=== PATIENT | female | born 1975 | race Caucasian/White ===

== ENCOUNTER → 2021-07-28 08:26 | Outpatient (BNVA) | payer OTHER, SELFPAY | PROVIDERS: PCP Internal Medicine; Visit Provider Nurse Practitioner Family | DX: G43.109 Migraine with aura, not intractable, without status migrainosus (principal); M54.2 Cervicalgia | CPT/HCPCS: 99202 ==

== ENCOUNTER → 2021-09-21 13:11 | Outpatient (BNVA) | payer OTHER, SELFPAY | PROVIDERS: PCP Internal Medicine; Visit Provider Nurse Practitioner Family | DX: M54.2 Cervicalgia (principal); G43.109 Migraine with aura, not intractable, without status migrainosus | CPT/HCPCS: 99212 ==

== ENCOUNTER → 2021-12-26 15:12 | Outpatient (BNVA) | payer OTHER, SELFPAY | PROVIDERS: Visit Provider Nurse Practitioner Family | DX: G43.109 Migraine with aura, not intractable, without status migrainosus (principal); G24.5 Blepharospasm; M54.2 Cervicalgia | CPT/HCPCS: 99212 ==

== ENCOUNTER 2022-01-11 14:11 | Outpatient (REF) | payer OTHER, SELFPAY ==
--- NOTE | ~2022-01-11 | MR_ITS ---
EXAMINATION: MRI OF THE BRAIN WITHOUT CONTRAST CLINICAL INFORMATION: Migraine with aura. History of prior surgery. COMPARISON: There are no prior studies available for comparison at time of dictation. TECHNIQUE: MRI of the brain was obtained using routine sequences without contrast. FINDINGS: There is susceptibility artifact from hardware in the posterior upper cervical spine. No diffusion abnormalities are identified to suggest an acute or subacute infarct. No mass effect or midline shift is seen. The ventricles and sulci are normal in size. There are multiple small foci of hyperintense T2 and FLAIR signal in the deep white matter which are nonspecific. They may be consistent with sequelae of migraine, vasculitis or early/mild chronic microvascular ischemic disease. No extra-axial fluid collections are seen. The brainstem appears normal. Imaging of the cerebellum is degraded by susceptibility artifact, but grossly no abnormal signal is seen. Apart from low gradient signal in the posterior fossa from susceptibility artifact, no pathologic magnetic susceptibility artifact is identified on the gradient refocused acquisition. Marrow signal and midline structures are normal. The cerebellar tonsillar tips appear to be in normal position. The major intracranial flow-voids at the level of the grayling of Gons[place] are preserved. The dural venous sinus flow-voids are maintained. The mastoid air cells are well-aerated. There is a small retention cyst in the inferior left axillary sinus. MR/MR head/brain wo con IMPRESSION: 1. There are no acute bleeds or infarcts. No masses are demonstrated. 2. There are multiple small foci of hyperintense T2 and FLAIR signal in the white matter as described above. 3. There is hardware in the posterior upper cervical spine with susceptibility artifact in the posterior fossa.
== END 2022-01-11 14:12 | disposition home or self-care (01) ==
LOC: HO.MRI 14:11
PROVIDERS: Visit Provider Nurse Practitioner Family
DX: G43.109 Migraine with aura, not intractable, without status migrainosus (principal); G24.5 Blepharospasm
CPT/HCPCS: 70551

== ENCOUNTER → 2022-06-01 13:09 | Outpatient (BNVA) | payer OTHER, SELFPAY | PROVIDERS: Visit Provider Nurse Practitioner Family | DX: G43.109 Migraine with aura, not intractable, without status migrainosus (principal); G24.5 Blepharospasm; M54.2 Cervicalgia | CPT/HCPCS: 99212 ==

== ENCOUNTER → 2022-08-31 12:54 | Outpatient (BNVA) | payer OTHER, SELFPAY | PROVIDERS: Visit Provider Nurse Practitioner Family | DX: G43.109 Migraine with aura, not intractable, without status migrainosus (principal); M54.2 Cervicalgia; Z79.899 Other long term (current) drug therapy | CPT/HCPCS: 99212 ==

== ENCOUNTER 2022-09-01 17:21 | Outpatient (REF) | payer OTHER, SELFPAY ==
--- NOTE | ~2022-09-01 | XR_ITS ---
EXAMINATION: XR CERVICAL SPINE CLINICAL INFORMATION: Neck pain. COMPARISON: None available. TECHNIQUE: 6 views of the cervical spine, inclusive of bilateral oblique views, were obtained. FINDINGS: There are postsurgical changes following ACDF at C6-C7. There appears to be bony ankylosis at this level. Hardware is intact. There are post laminectomy changes and posterior fusion hardware from C2 to C6. Posterior fusion hardware appears intact. There is no fracture or dislocation. There is increased cervical kyphosis. There is degenerative disc disease from C2-C3 to C5-C6. There is degenerative spondylosis at C7-T1. Neural foramen not well assessed due to overlying surgical hardware. XR/XR cervical spine min 6V IMPRESSION: Postsurgical changes. Degenerative changes. No fracture or dislocation.
== END 2022-09-01 17:22 | disposition home or self-care (01) ==
LOC: HO.XRAY 17:21
PROVIDERS: Visit Provider Nurse Practitioner Family
DX: M54.2 Cervicalgia (principal)
CPT/HCPCS: 72052

== ENCOUNTER 2023-03-19 08:54 | Outpatient (AMB) | payer OTHER, SELFPAY ==
--- NOTE | 2023-03-19 09:01 | A.OFFVIS_ITS ---
Intake Vital Signs 03/19/23 09:03 Height 5 ft 9 in Weight 183 lb BMI 27.0 BP 112/72 Blood Pressure Location Rt brachial Position Sitting Pulse 78 Pulse Source Pulse Oximeter Pulse Oximetry (%) 96 Oxygen Delivery Method Room Air Intake Visit Reasons: 4m f/up migraine-Confirmed Intake Note: Patient presents for 4 month migraine. Patient states I want to talk to her about the pain I'm getting and shes treating it with cyclobenzaprine,it's gotten worst. Allergies azithromycin Allergy (Intermediate, Verified 03/19/23 09:14) Rash gabapentin Allergy (Intermediate, Verified 03/19/23 09:14) Unknown propranolol Allergy (Intermediate, Verified 03/19/23 09:14) Rash tramadol Allergy (Intermediate, Verified 03/19/23 09:14) Rash Medication List - Last Reconciled 03/19/23 by Mireille Monroy, TARAS albuterol sulfate 90 mcg/actuation 2 puffs inhalation Q6H PRN erhhaikeoq-lgjordhzgjrwi-upvx 50-325-40 mg 1 tab PO Q4H PRN 30 days cyclobenzaprine 5 - 10 mg (1 - 2 x 5 mg) PO BEDTIME PRN 30 days diclofenac sodium 1% 4 grams topical QID PRN 14 days ibuprofen 400 mg PO Q6H PRN magnesium oxide 400 mg PO BEDTIME 30 days naproxen 500 mg PO BID PRN norethindrone (contraceptive) 0.35 mg PO DAILY nystatin topical DAILY riboflavin (vitamin B2) 400 mg PO DAILY 30 days sodium chloride 0.65% (Saline Nasal) 1 spray intranasal topiramate 25 - 50 mg (1 - 2 x 25 mg) PO BEDTIME 30 days HPI HPI Comments History of Present Illness Details 47-yr-old female presents for f/u visit. Pt denies any significant interval medical changes. Pt reports she is having approx 12 headache migraine days per month. She is compliant w/ Topiramate 25mg qhs- may cause some dizziness. She continues to have left sided jolting pain through her neck, into the left shoulder blade.- sometimes into the LUE. The pain makes her stop in her tracks. This pain comes and comes. Occasionally will have LUE pins and needles. She also has left sided pain that moves from the lateral hip and moves anteriorly straight down the left leg. The pain is throbbing, aching pain. It is a constant pain. Denies LUE and LLE weakness. [facility] Medical History (Updated 03/19/23 @ 09:33 by TARAS Millan) Foot fracture, left Broken neck Family History Mother Diabetes Bladder cancer Father HTN (hypertension) Brother HTN (hypertension) Social History Household Members: Spouse and Children Housing: Apartment Alcohol intake: never Patient Tobacco Use Status: Current everyday Tobacco user Cigarettes Per Day: 10 Years Smoked: 30 Substance Use Type: Marijuana Review of Systems Const All systems reviewed & are unremarkable except as noted in HPI and below Physical Exam Vital Signs: Last Vital Signs Pulse 78 03/19/23 09:03 BP 112/72 03/19/23 09:03 Pulse Ox 96 03/19/23 09:03 Oxygen Delivery Method Room Air 03/19/23 09:03 BMI result Body Mass Index 27.0 Const General: cooperative and no acute distress Orientation/consciousness: patient oriented x3 HEENT Head: Yes normocephalic Resp Effort & Inspection: normal respiratory effort and able to speak in complete sentences Neuro Other: Bilateral posterior cervical tightness. General: patient oriented x3, gait normal and CN's II-XI intact bilaterally Cognition (Neuro): normal cognition Motor exam (neuro): 5/5 motor strength present throughout Sensory Exam: double simultaneous stimulation for sensation normal Deep tendon reflexes (DTR's): Right triceps reflex intensity grade: 3+, Left triceps reflex intensity grade: 3+, Rt Biceps (C5, C6): 3+, Left biceps reflex intensity grade: 3+, Right brachioradialis reflex intensity grade: 3+, Left brachioradialis reflex intensity grade: 2+, Right patellar reflex intensity grade: 3+ and Left patellar reflex intensity grade: 2+ Psych Appearance: grossly normal Mental Status: mental status grossly normal Speech and movement: Normal speech and movement present Affect: normal affect Attitude: cooperative Thought process: Normal thought process present Thought content: Normal thought content present Insight: Good insight present (Psych) Judgement: Good judgement present (Psych) Assessment & Plan Assessment & Plan (1) Migraine with aura: Code(s): G43.109 - Migraine with aura, not intractable, without status migrainosus (2) Left leg pain: Code(s): M79.605 - Pain in left leg (3) Paresthesia of left upper extremity: Code(s): R20.2 - Paresthesia of skin (4) Cervicalgia: Comment: h/o C4-C5 fracture at age 15, s/p cervical stabilization repair. Code(s): M54.2 - Cervicalgia (5) Hyperreflexia: Comment: RUE and RLE Code(s): R29.2 - Abnormal reflex Plan For left-sided neck pain and LLE pain- Reviewed c-spine x-ray- Postsurgical changes. Degenerative changes. No fracture or dislocation. PT eval & tx for cervicalgia, LUE paresthesias. Pt advised to undergo c-spine MRI w/o. Pt advised to undergo LUE & LLE EMG/NCS. May use diclofenac gel 1% qid prn Hold Cyclobenzaprine- ineffective. Trial Baclofen 10mg qd-bid. For migraine prevention: Continue topiramate 25mg qhs- would not increase further d/t dizziness. Start Aimovig 140mg sc q month. Previous preventive medication trials: propranolol- not tolerated. amitriptyline- eye twitching. For acute migraine tx: Hold Fioricet prn. Trial Ubrelvy 100mg prn. Previous acute medication trials: Rizatriptan, Sumatriptan, Nurtec- ineffective. f/u in 3-4 months or sooner prn. Orders: Orders EEG electroencephalogram Today M54.2 - Cervicalgia, M79.605 - Pain in left leg, R20.2 - Paresthesia of skin MR cervical spine wo con Today M54.2 - Cervicalgia, R20.2 - Paresthesia of skin, R29.2 - Abnormal reflex PT Evaluation and Treatment Today M54.2 - Cervicalgia, R20.2 - Paresthesia of skin Medications: New erenumab-aooe (Aimovig Autoinjector) 140 mg subcut ONCE 30 days 1 mL 6RF ubrogepant (Ubrelvy) take at onset of migraine, may repeat in 2hrs (may take w/ Ibuprofen) 50 - 100 mg (0.5 - 1 x 100 mg) PO ONCE 30 days PRN 16 tabs 3RF migraine headache baclofen 10 mg PO BID 30 days 60 tabs 1RF Refilled topiramate 25 - 50 mg (1 - 2 x 25 mg) PO BEDTIME 30 days 60 tabs 3RF Discontinued cyclobenzaprine Discontinued Reason: Doctor's Order 5 - 10 mg (1 - 2 x 5 mg) PO BEDTIME 30 days PRN 60 tabs 1RF muscle spasm Coding Level of Care Code Est Pt Level 4 (38713) Diagnoses Migraine with aura G43.109 Left leg pain M79.605 Paresthesia of left upper extremity R20.2 Cervicalgia M54.2 Hyperreflexia R29.2
[2023-03-19 09:03] VITALS: BP 112/72; PULSE 78; O2SAT 96; BMI 27.0
== END 2023-03-19 09:46 | disposition home or self-care (01) ==
PROVIDERS: Visit Provider Nurse Practitioner Family
DX: G43.109 Migraine with aura, not intractable, without status migrainosus (principal); M79.605 Pain in left leg; R20.2 Paresthesia of skin; M54.2 Cervicalgia; R29.2 Abnormal reflex
CPT/HCPCS: 99214

== ENCOUNTER → 2023-03-19 08:54 | Outpatient (BNVA) | payer OTHER, SELFPAY | PROVIDERS: Visit Provider Nurse Practitioner Family | DX: G43.109 Migraine with aura, not intractable, without status migrainosus (principal); M54.2 Cervicalgia; M79.605 Pain in left leg; R20.2 Paresthesia of skin; R29.2 Abnormal reflex | CPT/HCPCS: 99212 ==

== ENCOUNTER 2023-05-02 10:22 | Outpatient (REF) | payer OTHER, SELFPAY ==
--- NOTE | ~2023-05-02 | MR_ITS ---
EXAMINATION: MR CERVICAL SPINE WITHOUT CONTRAST CLINICAL INFORMATION: Paresthesias of skin. The patient states left-sided neck symptoms. COMPARISON: Plain films of the cervical spine 09/01/2022. TECHNIQUE: MRI of the cervical spine was obtained using routine sequences without contrast. FINDINGS: VERTEBRAL BODIES AND PARASPINAL SOFT TISSUES: There is a mild dextroscoliosis at the cervicothoracic region. There is reversal of the normal cervical lordosis, demonstrated on prior imaging. The study redemonstrates the sequelae of ACDF at C6-C7 with good interbody fusion. The study also redemonstrates sequelae of multilevel posterior laminectomies and fusions with a plate and multilevel wiring, better evaluated on the prior study as there is significant susceptibility artifact from the hardware. There is narrowing of intervertebral disc height at C4-C5. There is disc desiccation at C7-T1. There are no compression fractures. Accounting for artifact, overall marrow signal is homogenous. Imaging of the paraspinal and paravertebral soft tissues is markedly degraded by susceptibility artifact. CERVICOMEDULLARY JUNCTION AND VISUALIZED POSTERIOR FOSSA: The craniocervical and posterior fossa structures are normal. Signal from the spinal cord is suboptimally evaluated due to susceptibility artifact. However, there is an area of increased signal in the spinal cord at the level of C4-C5, right greater than left, consistent with an area of myelomalacia. There is mild atrophy of the cord at this level. SPINAL LEVELS: C2-C3: Posterior disc contour is normal. There is no central stenosis or cord compression. The neural foramina are patent bilaterally. C3-C4: Posterior disc contour is normal. There is no central stenosis or cord compression. The neural foramina are patent bilaterally. C4-C5: There are sequelae of a decompression posteriorly. Posterior disc contour and there is no cord compression or central stenosis. The neural foramina are patent bilaterally. C5-C6: Posterior disc contour is normal and there is no cord compression or central stenosis. The neural foramina are patent bilaterally. C6-C7: There is a posterior osteophytic ridge which effaces CSF ventral to the cord but there is no definite cord compression. There are right greater than left foraminal disc osteophytes with narrowing of the neural foramina. There is no definite central stenosis. C7-T1: Evaluation of the structures are markedly degraded by susceptibility artifact on the axial images. On the sagittal images there is a large left-sided disc protrusion/extrusion extending into the left neural foramen with impingement on the exiting left C8 nerve root. On the axial 3-D FIESTA images there does not appear to be central stenosis. MR/MR cervical spine wo con IMPRESSION: 1. The study redemonstrates sequelae of ACDF at C6-C7 and multilevel posterior decompressions and fusions,, better visualized on the prior plain films. The hardware causes severe susceptibility artifact. 2. There is a large left-sided disc protrusion/extrusion at C7-T1 extending into the left neural foramen with impingement on the exiting left C8 nerve root. 3. There is an area of increased signal in the spinal cord at the level of C4-C5, consistent with myelomalacia. There is mild atrophy of the cord at this level.
== END 2023-05-02 10:23 | disposition home or self-care (01) ==
LOC: HO.MRI 10:22
PROVIDERS: Visit Provider Nurse Practitioner Family
DX: M54.2 Cervicalgia (principal); R20.2 Paresthesia of skin; R29.2 Abnormal reflex
CPT/HCPCS: 72141

== ENCOUNTER 2023-05-25 13:37 | Outpatient (REF) | payer OTHER, SELFPAY | END 2023-05-25 13:38 | disposition home or self-care (01) | LOC: HO.NEURO 13:37 | PROVIDERS: Visit Provider Nurse Practitioner Family | DX: R20.2 Paresthesia of skin (principal); R29.2 Abnormal reflex; M79.605 Pain in left leg; M54.2 Cervicalgia | CPT/HCPCS: 95886; 95908 ==

== ENCOUNTER → 2023-05-25 13:40 | Outpatient (BNV) | payer OTHER, SELFPAY | PROVIDERS: Visit Provider Physical Medicine & Rehabilitation | DX: R20.2 Paresthesia of skin (principal); M79.662 Pain in left lower leg | CPT/HCPCS: 95886; 95908 ==

== ENCOUNTER 2023-06-12 13:04 | Outpatient (AMB) | payer OTHER, SELFPAY ==
--- NOTE | 2023-06-12 13:10 | A.SPINEOV_ITS ---
Intake Intake Visit Reasons: cervicalgia Intake Note: Ms. Frank is here today c/o neck pain. MRI done @ [facility] [place]. [employer] Required: No Allergies azithromycin Allergy (Intermediate, Verified 03/19/23 09:14) Rash gabapentin Allergy (Intermediate, Verified 03/19/23 09:14) Unknown propranolol Allergy (Intermediate, Verified 03/19/23 09:14) Rash tramadol Allergy (Intermediate, Verified 03/19/23 09:14) Rash Assessment & Plan Assessment & Plan (1) Cervicalgia: Comment: h/o C4-C5 fracture at age 15, s/p cervical stabilization repair. Code(s): M54.2 - Cervicalgia (2) Carpal tunnel syndrome: Code(s): G56.00 - Carpal tunnel syndrome, unspecified upper limb Plan Dear Mireille Thank you for referring Mrs Frank to our office today. This is a 47-year-old female who has a history of a traumatic fracture of C4-5, status post decompression and posterior wiring from C2-C6 done in 1992, subsequently had anterior cervical fusion at C6-[address] Palacios done in 2017. The patient reports that when she had the initial accident, she was basically quadriplegic but regained full function of everything but her right arm which has a degree of numbness and diffuse weakness. She is able to continue on with life, and she was doing relatively well until 2016 or so when she started to develop bilateral arm pain with feelings of weakness. She underwent the anterior cervical fusion at C6-7 and after about a year or so tells me that the symptoms ultimately went away. Fast forward to about a year ago she started to notice feelings of pain in her arms coming down from her neck with feeling of diffuse numbness in her hands. Specifically only the palm and not the fingers. It seemed more pronounced on the right rather than the left. There is some degree of feeling of hand weakness but she tells me it is hard to distinguish because of the residual affects from her spinal cord injury. The symptoms have steadily gotten worse. She also has overlapping symptoms of migraines which are treated with Fioricet. She treats her chronic neck pain with baclofen and naproxen. An MRI was done to evaluate and it showed a left C7-T1 left-sided disc herniation compressing the left C8 nerve root and she was sent to us for an evaluation. She is also currently being worked up with an EMG for possible carpal tunnel. She does have nighttime symptoms or if she bends her wrist the right way can get the numbness she describes in the palms. PMH: She has the 2 cervical spinal issues that required surgery, other than that she tells me she is reasonably healthy. She does recall needing to wear a collar after her 2nd surgery for 6 months because the bones would not heal correctly. She has mild COPD Social hx: She smokes a half a pack daily, smokes marijuana daily, denies alcohol Medications: Fioricet, baclofen, naproxen, control, albuterol as needed Allergies: Please see the [employer] list Physical exam: She is awake alert oriented no acute distress, she is able get out of a chair and walk on her own, she does demonstrate diffuse weakness in the right arm which I would rate as 4/5. She has some atrophy as well of the thenar eminence. Diffuse hyperreflexia. Positive Tinel's and positive Phalen signs. Imaging review: Cervical MRI and x-ray at [place] shows extensive hardware from C2-C6 posteriorly. There is an anterior plate at C6-7 and there appears to be good interbody fusion at this level. She has reversal of the normal lordotic curvature of the cervical spine. There is a disc herniation on the left at C7- T1 causing compression of the left C8 nerve root. There is myelomalacia at C4-5 but no residual compression. Impression: 47-year-old female with a complicated cervical spinal history including a fracture at C4-5 necessitating an extensive posterior wiring at C2- C6 almost 30 years ago, who also had subsequent postoperative adjacent segment disease with an anterior cervical diskectomy and fusion with an anterior plate in 2017 for neck pain and bilateral arm pain. She did well after the 2nd surgery after about a year. She was told that her bone quality was not great and that the healing of the operative site took longer than expected. She had to wear a collar through that postoperative experience. She presents now with 1 year of progressive pain down her arms with tingling in the palms of her hands. She tells me that is worse on the right than the left. On my exam she does have strength loss, right greater than left. Diffuse hyperreflexia as we would expect with a history of a spinal cord injury. Positive Tinel's and positive Ph robert sign so I expect she has some degree of carpal tunnel as well. She is due for an EMG study. Her imaging shows extensive postsurgical changes from C2-C6 posteriorly and the anterior plate at C6-7. There is no residual compression either in the central canal or in the nerve roots at any of these levels. She does have the finding of a left C7-T1 disc herniation but no cord compression. I do not understand why she has bilateral arm pain with only a unilateral disc herniation at C7-T1. There is no cord compression at this level but rather just compression of the left C8 nerve root. I am wondering if what she is experiencing is in some type of bilaterall carpal tunnel syndrome with an overlapping left-sided C8 radiculopathy. I would like to see the results of her EMG and get a noncontrast cervical CT to evaluate her hardware and bone quality better before we make a final surgical decision. We will see her back after the CT in the EMG are completed. Thank you for allowing us to care for your patient. The total time spent with this visit with this patient was 45 minutes reviewing history, physical exam, cervical imaging review, and implementation of treatment plan or further diagnostic testing Rolly Renee MD,PhD [facility] Orders: Orders CT cervical spine wo IV con Today M54.2 - Cervicalgia Coding Level of Care Code New Pt Level 4 (81202) Diagnoses Cervicalgia M54.2 Carpal tunnel syndrome G56.00
== END 2023-06-12 13:41 | disposition home or self-care (01) ==
PROVIDERS: Referring Provider Nurse Practitioner Family; Visit Provider Physician Assistant
DX: M54.2 Cervicalgia (principal); G56.00 Carpal tunnel syndrome, unspecified upper limb
CPT/HCPCS: 99204

== ENCOUNTER → 2023-06-12 13:04 | Outpatient (BNVA) | payer OTHER, SELFPAY | PROVIDERS: Visit Provider Physician Assistant | DX: M54.2 Cervicalgia (principal); G56.00 Carpal tunnel syndrome, unspecified upper limb; Z98.1 Arthrodesis status | CPT/HCPCS: 99202 ==

== ENCOUNTER 2023-07-06 14:49 | Outpatient (REF) | payer OTHER, SELFPAY ==
--- NOTE | ~2023-07-06 | CT_ITS ---
CT CERVICAL SPINE WITHOUT CONTRAST HISTORY: 47 years old Female, cervicalgia TECHNIQUE: CT images of the cervical spine were acquired without intravenous contrast. This CT examination was performed using dose optimization techniques as appropriate, variously including the following: *Automated exposure control *Adjustment of mA and/or kV according to patient size (this includes techniques or standardized protocols for targeted exams where dose is matched to indication/reason for exam; i.e. extremities or head) *Use of iterative reconstruction technique DLP: 376 mGy-cm COMPARISON: Cervical spine MRI 05/02/2023, cervical radiographs 09/01/2022 FINDINGS: Reversal of normal cervical lordosis with shallow levocurvature of the cervical spine. Cervical vertebral body heights are maintained. No significant spondylolisthesis. Prior anterior cervical discectomy and fusion at C6-C7. Multilevel posterior decompression and fusion with vertical rods and multiple cerclage wires extending from C2 through C6. C2-C3: No significant spinal canal or neural foraminal stenosis. C3-C4: No significant spinal canal or neural foraminal stenosis. C4-C5: Mild narrowing of the right neural foramen. The spinal canal and left neural foramen are patent. C5-C6: No significant spinal canal or neural foraminal stenosis. C6-C7: Osteophytic ridging indents the ventral thecal sac with at least mild canal stenosis is suboptimally evaluated on this examination. Likely moderate to severe right and moderate left neural foraminal stenosis. C7-T1: Suboptimal evaluation of disc material seen on prior MRI. CT/CT cervical spine wo IV con IMPRESSION: Anterior cervical discectomy and fusion at C6-C7 with multilevel posterior decompression and fusion. Posterior fusion hardware spanning C2-C6 degrades evaluation of the thecal sac and neural foramen at these levels. No acute hardware complication is visualized. Previously visualized left sided disc protrusion/extrusion at C7-T1 is not well characterized on this examination.
== END 2023-07-06 14:50 | disposition home or self-care (01) ==
LOC: HO.CT 14:49
PROVIDERS: Visit Provider Physician Assistant
DX: M54.2 Cervicalgia (principal)
CPT/HCPCS: 72125

== ENCOUNTER 2023-07-18 10:47 | Outpatient (AMB) | payer OTHER, SELFPAY ==
--- NOTE | 2023-07-18 10:48 | MHC.OFFVIS ---
Intake Intake Visit Reasons: 4 mnts f/u for migraines-Lvm Intake Note: patient presents for follow up migraines. wants to stop Ubrelvy she stated is making her throw up a lot wants to go back on fioricet. Allergies azithromycin Allergy (Intermediate, Verified 07/18/23 10:49) Rash gabapentin Allergy (Intermediate, Verified 07/18/23 10:49) Unknown propranolol Allergy (Intermediate, Verified 07/18/23 10:49) Rash tramadol Allergy (Intermediate, Verified 07/18/23 10:49) Rash Medication List - Last Reconciled 07/18/23 by Mireille Monroy, TARAS albuterol sulfate 90 mcg/actuation 2 puffs inhalation Q6H PRN baclofen 10 mg PO BID 30 days sfcgabxapb-fiwspksmqsrrw-gwde 50-325-40 mg 1 tab PO Q4H PRN 30 days diclofenac sodium 1% 4 grams topical QID PRN 14 days erenumab-aooe (Aimovig Autoinjector) 140 mg subcut ONCE 30 days ibuprofen 400 mg PO Q6H PRN magnesium oxide 400 mg PO BEDTIME 30 days naproxen 500 mg PO BID PRN norethindrone (contraceptive) 0.35 mg PO DAILY nystatin topical DAILY riboflavin (vitamin B2) 400 mg PO DAILY 30 days sodium chloride 0.65% (Saline Nasal) 1 spray intranasal topiramate 25 - 50 mg (1 - 2 x 25 mg) PO BEDTIME 30 days ubrogepant (Ubrelvy) 50 - 100 mg (0.5 - 1 x 100 mg) PO ONCE PRN 30 days HPI HPI Comments History of Present Illness Details 47-yr-old female presents for f/u televideo visit via [employer], Since the last visit, C-spine MRI showed sequelae of ACDF at C6-C7 and multilevel posterior decompressions and fusions, Large left-sided disc protrusion/extrusion at C7-T1 extending into the left neural foramen with impingement on the exiting left C8 nerve root. Increased signal in the spinal cord at the level of C4-C5, consistent with myelomalacia w/ mild atrophy of the cord at this level. LLE EMG/NCS was normal. The LUE EMG/NCS- is pending. After review of above, pt was referred to nuerosurgery, who advised for surgical intervention, but did want to see results of a f/u c-spine CT and BUE EMG/NCS. She continues to have neck pain, tightness- she feels this can trigger her worsening She continues to have BUE tingling. The Baclofen and heat tx has been helpful. The Baclofen takes longer to work but last longer and is more effective then the cyclobenzaprine. She did not hear from PT yet, She is having migraine 2-3 x's per week. Ubrelvy causes vomiting about 40 minutes after taking it, the vomiting then triggers her neck pain and a new migraine. She did stop the Aimovig- as she was not sure if this was making her vomit. Baseline headache characteristics: Has had visual aura- sees a pulsing red/orange halo around people. Severe, throbbing, headache is right frontal and moves into right back of neck a/w seeing spots, right eye twitching, mild photophobia, osmophobia, phonophobia, nausea, vomiting at times. [facility] Medical History (Updated 07/18/23 @ 12:32 by TARAS Millan) Foot fracture, left Broken neck Family History Mother Diabetes Bladder cancer Father HTN (hypertension) Brother HTN (hypertension) Social History Household Members: Spouse and Children Housing: Apartment Alcohol intake: never Patient Tobacco Use Status: Current everyday Tobacco user Cigarettes Per Day: 10 Years Smoked: 30 Substance Use Type: Marijuana Physical Exam Const General: cooperative and no acute distress Orientation/consciousness: patient oriented x3 Resp Effort & Inspection: normal respiratory effort and able to speak in complete sentences Neuro General: patient oriented x3 Cognition (Neuro): normal cognition Psych Appearance: grossly normal Mental Status: mental status grossly normal Speech and movement: Normal speech and movement present Affect: normal affect Attitude: cooperative Assessment & Plan Assessment & Plan (1) Migraine with aura: Code(s): G43.109 - Migraine with aura, not intractable, without status migrainosus (2) Paresthesia and pain of right extremity: Code(s): M79.609 - Pain in unspecified limb; R20.2 - Paresthesia of skin (3) Cervicalgia: Comment: h/o C4-C5 fracture at age 15, s/p cervical stabilization repair. Code(s): M54.2 - Cervicalgia Plan For left-sided neck pain and LLE pain and BUE paresthesias- Reviewed c-spine MRI: sequelae of ACDF at C6-C7 and multilevel posterior decompressions and fusions, Large left-sided disc protrusion/extrusion at C7-T1 extending into the left neural foramen with impingement on the exiting left C8 nerve root. Increased signal in the spinal cord at the level of C4-C5, consistent with myelomalacia w/ mild atrophy of the cord at this level. EMG/NCS order updated from LUE to BUE as pt c/o BUE paresthesias. May use diclofenac gel 1% qid prn Continue Baclofen 10mg qd-bid- more effective then Cyclobenzaprine. F/u w/ neurosurgery as scheduled. Hold PT eval & tx for now pending EMG/NCS and neurosurgery f/u. ? For migraine prevention: Continue topiramate 25mg qhs- would not increase further d/t dizziness. Hold Aimovig 140mg sc q month- discussed this likely was not causing the vomiting. Pt will reconsider starting following her c-spine work-up/tx. Previous preventive medication trials: propranolol- not tolerated. amitriptyline- eye twitching. ? For acute migraine tx: May resume Fioricet prn. Stop Ubrelvy 100mg- causes vomiting. Previous acute medication trials: Rizatriptan, Sumatriptan, Nurtec- ineffective. ? f/u in 3-4 months or sooner prn. Medications: Refilled qfhwfactme-ncrhoglskxvut-fxdi 50-325-40 mg max 2 tabs per day or 4 tabs per week 1 tab PO Q4H 30 days PRN 20 tabs 2RF headache Discontinued ubrogepant (Ubrelvy) take at onset of migraine, may repeat in 2hrs (may take w/ Ibuprofen) Discontinued Reason: Doctor's Order 50 - 100 mg (0.5 - 1 x 100 mg) PO ONCE 30 days PRN 16 tabs 3RF migraine headache Telehealth Telehealth Location of provider rendering services: practice address Location of patient: address on file Patient Identification confirmed using: Name, : Yes Telehealth method: video Patient verbally consented to treatment: Yes Patient verbally consented to billing insurance company: Yes Patient informed of any privacy concerns related to visit: Yes Minutes spent on Phone/Video with Pt.: 30 Coding Level of Care Code Tele Est Pt Level 4 (00098) Diagnoses Migraine with aura G43.109 Paresthesia and pain of right extremity M79.609; R20.2 Cervicalgia M54.2
== END 2023-07-18 14:02 | disposition home or self-care (01) ==
LOC: HO.HSMS 10:48
PROVIDERS: Visit Provider Nurse Practitioner Family
DX: G43.109 Migraine with aura, not intractable, without status migrainosus (principal); M79.609 Pain in unspecified limb; R20.2 Paresthesia of skin; M54.2 Cervicalgia
CPT/HCPCS: 99214

== ENCOUNTER → 2023-07-18 10:47 | Outpatient (BNVA) | payer OTHER, SELFPAY | PROVIDERS: Visit Provider Nurse Practitioner Family ==

== ENCOUNTER 2023-07-26 13:56 | Outpatient (REF) | payer OTHER, SELFPAY ==
--- NOTE | 2023-07-26 13:58 | EMG_ITS ---
Chief complaint: Tingling on both arms History of a traumatic fracture of C4-5, status post decompression and posterior wiring from C2-C6 done in 1992, subsequently had anterior cervical fusion at C6- [address] Palacios done in 2017 Reason for referral: Evaluate for radiculopathy versus Carpal Tunnel Syndrome Referred by: Mireille Monroy NP Procedure done: Left upper extremity ordered, bilateral done Precautions and/or limitations: Past cervical spine surgeries, paraspinal needle EMG deferred The limb temperature was monitored continuously and remained between 32-36 degrees C during the performance of the NCS. Nerve Conduction Studies Anti Sensory Summary Table ?Stim Site NR Onset (ms) Norm Onset (ms) Peak (ms) Norm Peak (ms) O-P Amp (?V) Norm O-P Amp Site1 Site2 Delta-0 (ms) Dist (cm) Donald (m/s) Norm Donald (m/s) Left Median Anti Sensory (2nd Digit) Wrist ? 2.2 2.9 <3.6 30.3 >10 Wrist 2nd Digit 2.2 14.0 64 Right Median Anti Sensory (2nd Digit) Wrist ? 2.3 2.8 <3.6 41.5 >10 Wrist 2nd Digit 2.3 14.0 61 Left Ulnar Anti Sensory (5th Digit) Wrist ? 2.3 2.9 <3.7 29.2 >15.0 Wrist 5th Digit 2.3 14.0 61 Right Ulnar Anti Sensory (5th Digit) Wrist ? 2.0 2.9 <3.7 16.7 >15.0 Wrist 5th Digit 2.0 14.0 70 Motor Summary Table ?Stim Site NR Onset (ms) Norm Onset (ms) O-P Amp (mV) Norm O-P Amp iAmp (mV) Amp (1st) (%) Site1 Site2 Delta-0 (ms) Dist (cm) Donald (m/s) Norm Donald (m/s) Left Median Motor (Abd Poll Brev) Wrist ? 3.0 <3.9 10.3 >4.5 12.6 100.0 Elbow Wrist 4.3 22.0 51 >45 Elbow ? 7.3 9.5 11.3 92.2 Right Median Motor (Abd Poll Brev) Wrist ? 3.0 <3.9 9.8 >4.5 12.5 100.0 Elbow Wrist 3.8 21.0 55 >45 Elbow ? 6.8 9.3 11.8 94.9 Left Ulnar Motor (Abd Dig Minimi) Wrist ? 2.7 <3.0 6.1 >5 7.4 100.0 B Elbow Wrist 3.2 20.0 63 >45 B Elbow ? 5.9 5.8 7.3 95.1 A Elbow B Elbow 1.5 10.0 67 >45 A Elbow ? 7.4 5.6 7.0 91.8 Right Ulnar Motor (Abd Dig Minimi) Wrist ? 2.9 <3.0 6.1 >5 7.7 100.0 B Elbow Wrist 3.0 18.0 60 >45 B Elbow ? 5.9 6.1 7.8 100.0 A Elbow B Elbow 1.3 10.0 77 >45 A Elbow ? 7.2 6.2 8.0 101.6 Comparison Summary Table ?Stim Site NR Peak (ms) Norm Peak (ms) P-T Amp (?V) Site1 Site2 Delta-P (ms) Norm Delta (ms) Left Median/Radial Dig I Comparison (Digit 1 - 10cm) Median ? 2.3 <2.9 44.1 Median Radial 0.0 Radial ? 2.3 <2.8 52.1 Right Median/Radial Dig I Comparison (Digit 1 - 10cm) Median ? 2.1 <2.9 53.6 Median Radial 0.1 Radial ? 2.2 <2.8 23.9 EMG ?Side Muscle Nerve Root Ins Act Fibs Psw Amp Dur Poly Recrt Int Pat Comment Right 1stDorInt Ulnar C8-T1 Nml Nml Nml Nml Nml 0 Nml Complete Right FlexCarRad Median C6-7 Nml Nml Nml Nml Nml 0 Nml Complete Right Biceps Musculocut C5-6 Nml Nml Nml Nml Nml 0 Nml Complete Right Triceps Radial C6-7-8 Nml Nml Nml Nml Nml 0 Nml Complete Right Deltoid Axillary C5-6 Nml Nml Nml Incr Incr 0 Nml Complete Right Supraspinatus SupraScap C5-6 Nml Nml Nml Nml Nml 0 Nml Complete Left 1stDorInt Ulnar C8-T1 Nml Nml Nml Nml Nml 0 Nml Complete Left FlexCarRad Median C6-7 Nml Nml Nml Nml Nml 0 Nml Complete Left Biceps Musculocut C5-6 Nml Nml Nml Nml Nml 0 Nml Complete Left Triceps Radial C6-7-8 Nml Nml Nml Nml Nml 0 Nml Complete Left Deltoid Axillary C5-6 Nml Nml Nml Nml Nml 0 Nml Complete FINDINGS: All motor and sensory nerves tested showed normal latencies, amplitudes and conduction velocities. Concentric needle EMG was performed in selected muscles of the bilateral upper extremities. Study revealed Signs of electric abnormalities as shown in the table below. Right deltoid showed increased duration and amplitude. No denervation or reinnervation seen in other C5-6 innervated muscles. IMPRESSION: 1. This is a minimally abnormal study. 2. There is electrodiagnostic findings suggestive for chronic right C5-6 radiculopathy. 3. There is no electrodiagnostic evidence for median neuropathy, ulnar neuropathy, or brachial plexopathy. Thank you for your kind referral. Samantha Krueger MD, NICK Board Certified, [place] [employer] and [employer] (ABPMR) Board Certified, [place] Board of Electrodiagnostic Medicine (ABEM) CODIN 56730 x 2 MTDD
== END 2023-07-26 13:57 | disposition home or self-care (01) ==
LOC: HO.NEURO 13:56
PROVIDERS: Visit Provider Nurse Practitioner Family
DX: R29.2 Abnormal reflex (principal); R20.2 Paresthesia of skin; M79.605 Pain in left leg; M54.2 Cervicalgia
CPT/HCPCS: 95886; 95911

== ENCOUNTER → 2023-07-26 13:58 | Outpatient (BNV) | payer OTHER, SELFPAY | PROVIDERS: Visit Provider Physical Medicine & Rehabilitation | DX: M50.122 Cervical disc disorder at C5-C6 level with radiculopathy (principal) | CPT/HCPCS: 95886; 95911 ==

== ENCOUNTER 2023-09-05 14:39 | Outpatient (AMB) | payer OTHER, SELFPAY ==
--- NOTE | 2023-09-05 14:43 | HO.SPINEOV ---
Intake Intake Visit Reasons: f/up/EMG results Intake Note: Ms. Frank is here today to F/u on EMG results. Chief Operator Hydroformer Required: No Allergies azithromycin Allergy (Intermediate, Verified 09/05/23 14:44) Rash gabapentin Allergy (Intermediate, Verified 09/05/23 14:44) Unknown propranolol Allergy (Intermediate, Verified 09/05/23 14:44) Rash tramadol Allergy (Intermediate, Verified 09/05/23 14:44) Rash Assessment & Plan Assessment & Plan (1) Paresthesia of left upper extremity: Code(s): R20.2 - Paresthesia of skin (2) Paresthesia and pain of right extremity: Code(s): M79.609 - Pain in unspecified limb; R20.2 - Paresthesia of skin Plan Dear colleague, On 09/05/2023, I saw for follow-up Alison Frank. As you know, she suffering from bilateral arm tingling. An MRI showed a left-sided C7-T1 disc herniation without cord compression. We ordered an EMG which comes back normal. A CT scan of the cervical spine was reviewed and showed a solid fusion. I explained to the patient that no surgical intervention is required. She does have myelomalacia and mild spinal cord atrophy that I think is most likely responsible for the progressive bilateral arm symptoms. She could try gabapentin for the tingling. Thank you for allowing me take care of this patient. Fantasma Renee MD, PhD Spine Fellowship Trained Neurosurgeon Director, [facility] Coding Level of Care Code Est Pt Level 2 (47649) Diagnoses Paresthesia of left upper extremity R20.2 Paresthesia and pain of right extremity M79.609; R20.2
== END 2023-09-05 15:19 | disposition home or self-care (01) ==
PROVIDERS: PCP Internal Medicine; Visit Provider Neurological Surgery
DX: R20.2 Paresthesia of skin (principal); M79.609 Pain in unspecified limb
CPT/HCPCS: 99212

== ENCOUNTER → 2023-09-05 14:39 | Outpatient (BNVA) | payer OTHER, SELFPAY | PROVIDERS: Visit Provider Neurological Surgery | DX: R20.2 Paresthesia of skin (principal); M79.601 Pain in right arm; M79.602 Pain in left arm | CPT/HCPCS: 99212 ==

== ENCOUNTER 2023-11-01 11:40 | Outpatient (AMB) | payer OTHER, SELFPAY ==
--- NOTE | 2023-11-01 11:45 | A.OFFVIS_ITS ---
Vital Signs 11/01/23 11:46 Height 5 ft 9 in Weight 182 lb BMI 26.9 BP 110/64 Blood Pressure Location Rt brachial Position Sitting Pulse 70 Pulse Source Pulse Oximeter Pulse Oximetry (%) 98 Oxygen Delivery Method Room Air Intake Visit Reasons: follow up migraines - Conf Intake Note: Patient presents for follow up migraines. Patient wants us to send office notes to PCP. still having migraines more so after the last 2 weeks. Allergies azithromycin Allergy (Intermediate, Verified 11/01/23 11:49) Rash gabapentin Allergy (Intermediate, Verified 11/01/23 11:49) Unknown propranolol Allergy (Intermediate, Verified 11/01/23 11:49) Rash tramadol Allergy (Intermediate, Verified 11/01/23 11:49) Rash Medication List - Last Reconciled 11/01/23 by TARAS Millan albuterol sulfate 90 mcg/actuation 2 puffs inhalation Q6H PRN baclofen 10 mg PO BID 30 days hdgdmyjbhz-jjespwvoxchvu-lxly 50-325-40 mg 1 tab PO Q4H PRN 30 days diclofenac sodium 1% 4 grams topical QID PRN 14 days erenumab-aooe (Aimovig Autoinjector) 140 mg subcut ONCE 30 days ibuprofen 400 mg PO Q6H PRN magnesium oxide 400 mg PO BEDTIME 30 days naproxen 500 mg PO BID PRN norethindrone (contraceptive) 0.35 mg PO DAILY nystatin topical DAILY riboflavin (vitamin B2) 400 mg PO DAILY 30 days sodium chloride 0.65% (Saline Nasal) 1 spray intranasal topiramate 25 - 50 mg (1 - 2 x 25 mg) PO BEDTIME 30 days HPI Comments Details: 47-yr-old female presents for f/u visit. Pt had neurosurgery consult for the BUE paresthesias and neck pain. Her BUE EMG/NCS showed chronic right C5-[address] Renee did not feel that surgical intervention would be of benefit. He suggested she try Gabapentin, however she did not tolerate gabapentin before- caused mood changes. States she has tolerated pregabalin better before. Pt reports that she has had an increase in her migraines, which she attributes to increased stress r/t her recently falling down the stairs at home and sustaining serious injuries. Pt reports she is needing to use her Fioricet about 2 x's per week. Baseline headache characteristics: Has had visual aura- sees a pulsing red/orange halo around people. Severe, throbbing, headache is right frontal and moves into right back of neck a/w seeing spots, right eye twitching, mild photophobia, osmophobia, ph onophobia, nausea, vomiting at times. [facility] Medical History (Updated 07/18/23 @ 12:32 by TARAS Millan) Foot fracture, left Broken neck Family History Mother Diabetes Bladder cancer Father HTN (hypertension) Brother HTN (hypertension) Social History Household Members: Spouse and Children Housing: Apartment Alcohol intake: never Patient Tobacco Use Status: Current everyday Tobacco user Cigarettes Per Day: 10 Years Smoked: 30 Substance Use Type: Marijuana Physical Exam Vital Signs: Last Vital Signs Pulse 70 11/01/23 11:46 BP 110/64 11/01/23 11:46 Pulse Ox 98 11/01/23 11:46 Oxygen Delivery Method Room Air 11/01/23 11:46 BMI result Body Mass Index 26.9 Const General: cooperative and no acute distress Orientation/consciousness: patient oriented x3 Resp Effort & Inspection: normal respiratory effort and able to speak in complete sentences Neuro General: patient oriented x3 Cranial nerves: Yes CN's II-XII intact bilaterally Cognition (Neuro): normal cognition Psych Appearance: grossly normal Mental Status: mental status grossly normal Speech and movement: Normal speech and movement present Affect: normal affect Attitude: cooperative Assessment & Plan Assessment & Plan (1) Migraine with aura: Code(s): G43.109 - Migraine with aura, not intractable, without status migrainosus Category: Medical (2) Cervicalgia: Comment: h/o C4-C5 fracture at age 15, s/p cervical stabilization repair. Code(s): M54.2 - Cervicalgia Category: Medical (3) Paresthesia of left upper extremity: Code(s): R20.2 - Paresthesia of skin Category: Medical (4) Paresthesia and pain of right extremity: Code(s): M79.609 - Pain in unspecified limb; R20.2 - Paresthesia of skin Category: Medical Plan For left-sided neck pain and LLE pain and BUE paresthesias- Reviewed neurosurgery notes- no indication for surgical intervention at this time. Trial pregabalin 25mg- 1-3 caps per day. May use diclofenac gel 1% qid prn Continue Baclofen 10mg qd-bid- more effective then Cyclobenzaprine. ? For migraine prevention: Continue topiramate 25mg qhs- would not increase further d/t dizziness. Trial emgality 240mg sc x's 1, f/b 120mg sc q month. Previous preventive medication trials: propranolol- not tolerated. amitriptyline- eye twitching. Aimovig- did not tolerate- GI s/s ? For acute migraine tx: May continue Fioricet prn. Previous acute medication trials: Rizatriptan, Sumatriptan, Nurtec- ineffective. Ubrelvy 100mg- causes vomiting. ? f/u in 6 months or sooner prn. Medications: New galcanezumab-gnlm (Emgality Pen) Loading dose: 120 mg subcu injection x2 in alternate sites (total 240 mg). To be followed by maintenance dose of 120 mg subcu q.month. 240 mg (2 mL) subcut ONCE 30 days 2 mL 0RF pregabalin 25 mg PO TID 30 days 90 caps 3RF Changed From topiramate 25 - 50 mg (1 - 2 x 25 mg) PO BEDTIME 30 days 60 tabs 3RF To topiramate 50 mg (2 x 25 mg) PO BEDTIME 30 days 60 tabs 6RF Discontinued erenumab-aooe (Aimovig Autoinjector) Discontinued Reason: Doctor's Order 140 mg subcut ONCE 30 days 1 mL 6RF Coding Level of Care Code Est Pt Level 4 (11415) Diagnoses Migraine with aura G43.109 Cervicalgia M54.2 Paresthesia of left upper extremity R20.2 Paresthesia and pain of right extremity M79.609; R20.2
[2023-11-01 11:46] VITALS: BP 110/64; PULSE 70; O2SAT 98; BMI 26.9
== END 2023-11-01 12:23 | disposition home or self-care (01) ==
PROVIDERS: Visit Provider Nurse Practitioner Family
DX: G43.109 Migraine with aura, not intractable, without status migrainosus (principal); M54.2 Cervicalgia; R20.2 Paresthesia of skin; M79.609 Pain in unspecified limb
CPT/HCPCS: 99214

== ENCOUNTER → 2023-11-01 11:40 | Outpatient (BNVA) | payer OTHER, SELFPAY | PROVIDERS: Visit Provider Nurse Practitioner Family | DX: G43.109 Migraine with aura, not intractable, without status migrainosus (principal); M54.2 Cervicalgia; R20.2 Paresthesia of skin; M79.609 Pain in unspecified limb | CPT/HCPCS: 99212 ==

== ENCOUNTER → 2024-02-01 12:54 | Outpatient (BNVA) | payer OTHER, SELFPAY | PROVIDERS: PCP Internal Medicine; Visit Provider Nurse Practitioner Family ==

== ENCOUNTER 2024-05-29 13:01 | Outpatient (AMB) | payer OTHER, SELFPAY ==
--- NOTE | 2024-05-29 13:09 | MHC.OFFVIS ---
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 She continues to have BUE paresthesias and neck pain. The neck pain is not as stabbing, and now more of a warm sensation moving up from the neck. Received one order for pregabalin 25 mg, which does help some but it has not been refilled since. States she understands there is not a cure for this pain, and she is trying to learn to live with it. Emgality injection has been helpful, initially had greater than 30% reduction in headache frequency. However, pt reports that she has had an increase in her migraines in April, had 20 migraine days. Migraine triggered by her cervical herniated disc and a new right collarbone pain which she feels she is also triggered by her neck as well. Stress triggers the migraine as well- notes she is now carrying for her 12-year-old adopted sons daughter. Pt reports she is using Tylenol or naproxen, trying to use her Fioricet sparingly. Baseline headache characteristics: Has had visual aura- sees a pulsing red/orange halo around people. Severe, throbbing, headache is right frontal and moves into right back of neck a/w seeing spots, right eye twitching, mild photophobia, osmophobia, phonophobia, nausea, vomiting at times. [facility]END[facility] TO [facility] Medical History (Updated 07/18/23 @ 12:32 by TARAS Millan) Foot fracture, left Broken neck Family History Mother Diabetes Bladder cancer Father HTN (hypertension) Brother HTN (hypertension) Social History Household Members: Spouse and Children Housing: Apartment Alcohol intake: never Patient Tobacco Use Status: Current everyday Tobacco user Cigarettes Per Day: 10 Years Smoked: 30 Substance Use Type: Marijuana Physical Exam Vital Signs: Last Vital Signs Pulse 76 05/29/24 13:10 BP 112/62 05/29/24 13:10 Pulse Ox 96 05/29/24 13:10 Oxygen Delivery Method Room Air 05/29/24 13:10 BMI result Body Mass Index 26.6 Const General: cooperative and no acute distress Orientation/consciousness: patient oriented x3 Resp Effort & Inspection: normal respiratory effort and able to speak in complete sentences Neuro General: patient oriented x3 Cranial nerves: Yes CN's II-XII intact bilaterally Cognition (Neuro): normal cognition Psych Appearance: grossly normal Mental Status: mental status grossly normal Speech and movement: Normal speech and movement present Affect: normal affect Attitude: cooperative Assessment & Plan Assessment & Plan (1) Migraine with aura: Code(s): G43.109 - Migraine with aura, not intractable, without status migrainosus Category: Medical (2) Cervicalgia: Comment: h/o C4-C5 fracture at age 15, s/p cervical stabilization repair. Code(s): M54.2 - Cervicalgia Category: Medical (3) Paresthesia of left upper extremity: Code(s): R20.2 - Paresthesia of skin Category: Medical (4) Paresthesia and pain of right extremity: Code(s): M79.609 - Pain in unspecified limb; R20.2 - Paresthesia of skin Category: Medical Plan For left-sided neck pain and LLE pain and BUE paresthesias- We will refill pregabalin 25mg- 1-3 caps per day- tried to take more regularly to see if there is more sustained effect. Discontinue diclofenac gel 1% qid prn- ineffective Continue Baclofen 10mg qd-bid Previous trials: Gabapentin not tolerated, Cyclobenzaprine- not as effective as baclofen. Future considerations: ACT therapy for pain management ? For migraine prevention: Magnesium 400 mg q.h.s. Continue topiramate 50mg qhs- would not increase further d/t dizziness. Continue emgality 120mg sc q month, as patient has overall had a good reduction in migraine frequency. April was increased due to increased stress related to the holidays. Previous preventive medication trials: propranolol- not tolerated. amitriptyline- eye twitching. Aimovig- did not tolerate- GI s/s ? For acute migraine tx: May continue Fioricet prn. Previous acute medication trials: Rizatriptan, Sumatriptan, Nurtec- ineffective. Ubrelvy 100mg- causes vomiting. ? f/u in 6 months or sooner prn. Medications: Changed From galcanezumab-gnlm (Emgality Pen) Maintenance dose of 120 mg subcu q.month. 240 mg (2 mL) subcut ONCE 30 days 1 mL 6RF To galcanezumab-gnlm (Emgality Pen) Maintenance dose of 120 mg subcu q.month. 120 mg subcut ONCE 30 days 30 mL 6RF Refilled topiramate 50 mg (2 x 25 mg) PO BEDTIME 30 days 60 tabs 6RF gwpkisimev-pzktgcokakcrk-ujxj 50-325-40 mg max 2 tabs per day or 4 tabs per week 1 tab PO Q4H 30 days PRN 20 tabs 3RF headache pregabalin 25 mg PO TID 30 days 90 caps 4RF baclofen 10 mg PO BID 30 days 60 tabs 4RF magnesium oxide 400 mg PO BEDTIME 30 days 30 tabs 6RF Discontinued diclofenac sodium 1% apply to left neck Discontinued Reason: Doctor's Order 4 grams topical QID 14 days PRN 100 grams 3RF neck pain Coding Level of Care Code Est Pt Level 4 (72176) Diagnoses Migraine with aura G43.109 Cervicalgia M54.2 Paresthesia of left upper extremity R20.2 Paresthesia and pain of right extremity M79.609; R20.2
[2024-05-29 13:10] VITALS: BP 112/62; PULSE 76; O2SAT 96; BMI 26.6
== END 2024-05-29 13:54 | disposition home or self-care (01) ==
PROVIDERS: PCP Internal Medicine; Visit Provider Nurse Practitioner Family
DX: G43.109 Migraine with aura, not intractable, without status migrainosus (principal); M54.2 Cervicalgia; R20.2 Paresthesia of skin; M79.609 Pain in unspecified limb
CPT/HCPCS: 99214

== ENCOUNTER → 2024-05-29 13:01 | Outpatient (BNVA) | payer OTHER, SELFPAY | PROVIDERS: PCP Internal Medicine; Visit Provider Nurse Practitioner Family | DX: G43.109 Migraine with aura, not intractable, without status migrainosus (principal); M54.2 Cervicalgia; M79.609 Pain in unspecified limb; R20.2 Paresthesia of skin | CPT/HCPCS: 99212 ==

== ENCOUNTER 2024-12-04 14:05 | Outpatient (REF) | payer OTHER, SELFPAY ==
--- OUTSIDE RECORDS SUMMARY | 2024-12-04 16:15 | XMS_ITS | Data Portability ---
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 Unfortunately she describes it has been present for approximately 1 year and causes her significant discomfort with acidic or spicy foods. I have reviewed my impression that it likely is a benign lesion and no specific intervention is required. Given her symptoms she requests specifically to have it more aggressively removed. This will result in additional scar tissue which may or may not improve her discomfort with acidic and spicy foods, it will also decrease her sensitivity of the tongue tip which may be bothersome when she is manipulating food in her mouth. It is likely derived from trauma as well as proximity to very poor dentition and smoking dplosky Not available 10/29/2024 10:51:06 Plan of Treatment Reminders Order Date Submit Date Provider Last Modified By Organization Details Last Modified Time Details Appointments Test Results 15 2024 04:00P M NILESH TAVARES MD Not available Not available Not available Lab None recorded . Referral None recorded . Procedures None recorded . Surgeries None recorded . Imaging None recorded . Medication Orders None recorded . Patient TargetsNo targets recorded. Patient InstructionsNo instructions recorded. Reason for Referral None Reported. Problems Name Problem SNOMED Code Status Onset Date Resolution Date Notes Provider Name and Address Organization Details Recorded Time Lesion of tongue 658921333 Active 025 NILESH TAVARES MD [address], [phone], [place] - [facility] 5 10:48:36 Cigarette smoker 08746050 Active 025 NILESH TAVARES MD [address] [place] [address], [phone], [facility] - [facility] 5 10:51:21 Problem Notes None recorded. Medical Equipment None Reported. Allergies Allergen ID Allergen Name Allergen Category Reaction Reaction Severity Criticality Documentation Date Start Date Code Code System Note Provider Name and Address Organization Details Recorded Time 468678 Substance with sulfonami de structure and antibacte rial mechanism of action (substanc e) medicatio n Not available Not available Not available 10/29/2024 39604 8003 SNOMED ONEL ASHLEY frey [facility] 5 10:37:51 Medications Name Sig Start Date Stop Date Status Note LastModified by Organization Details LastModified Time amoxicillin 500 mg capsule TAKE 1 CAPSULE BY MOUTH THREE TIMES A DAY FOR 7 DAYS 10/29 completed Not Available Not Available Not Available fluconazole 150 mg tablet TAKE 1 TABLET BY MOUTH 1 TIME FOR 1 DOSE. active Not Available Not Available No t Available prednisone 20 mg tablet TAKE 1 TABLET BY MOUTH TWICE A DAY FOR 7 DAYS 10/29 completed Not Available Not Available Not Available topiramate 25 mg tablet TAKE 2 TABLETS BY MOUTH AT BEDTIME active Not Available Not Available No t Available butalbital- acetaminoph en-caffeine 50 mg-325 mg-40 mg tablet 1 TAB ORALLY EVERY 4 HOURS NEEDED FOR HEADACHE FOR 30 DAYS MAX 2 TABS PER DAY OR 4 TABS PER WEEK active Not Available Not Available No t Available amoxicillin 500 mg tablet TAKE 1 TABLET BY MOUTH 3 TIMES A DAY FOR 7 DAYS 10/29 completed Not Available Not Available Not Available amoxicillin 400 mg-potassiu m clavulanate 57 mg/5 mL oral suspension TAKE 11 ML BY MOUTH 2 TIMES DAILY FOR 7 DAYS. 10/29 completed Not Available Not Available Not Available magnesium oxide 400 mg (241.3 mg magnesium) tablet TAKE 1 TABLET BY MOUTH EVERYDAY AT BEDTIME active Not Available Not Available No t Available baclofen 10 mg tablet TAKE 1 TABLET BY MOUTH TWICE A DAY active Not Available Not Available No t Available benzonatate 100 mg capsule TAKE 1 CAPSULE BY MOUTH 3 TIMES DAILY NEEDED FOR COUGH FOR UP TO 7 DAYS. 10/29 completed Not Available Not Available Not Available ibuprofen 600 mg tablet TAKE 1 TABLET BY MOUTH EVERY 6 TO 8 HOURS NEEDED FOR PAIN active Not Available Not Available No t Available loratadine 10 mg tablet TAKE 1 TABLET BY MOUTH EVERY DAY active Not Available Not Available No t Available Ventolin HFA 90 mcg/actuati on aerosol inhaler INHALE 2 PUFFS INTO THE LUNGS EVERY 4 HOURS NEEDED FOR COUGH OR WHEEZING. active Not Available Not Available No t Available pregabalin 25 mg capsule TAKE 1 CAPSULE BY MOUTH THREE TIMES A DAY active Not Available Not Available No t Available Emgality Pen 120 mg/mL subcutaneou s pen injector PLEASE SEE ATTACHED FOR DETAILED DIRECTION S active Not Available Not Available No t Available Vitals Date Recorded Body height Body mass index (BMI) Body weight Provider Name and Address Organization Details Last Updated DateTime 10/29/2024 175.26 cm 25.1 kg/m2 17645.7 g ONEL RAMIREZ [place] - [facility] 10/29/2024 10:37:44 Social History None recorded. Functional Status Question Answer Note LastModified by Organization D etails LastModified Time What is your level of alcohol consumption? None [email or web address] Information not available 10/29/2024 Mental Status None recorded. Family History Nothing Reported. Medical History Condition Response Cancer Y Asthma Y Gynecological HistoryNo gynecological history recorded. Obstetrics History GPAL:G 0 P 0 0 0 0 Past Encounters Encounter ID Performer Location Encounter Start Date Encounter Closed Date Diagnosis/Indication Diagnosis SNOMED-CT Code Diagnosis ICD10 Code Diagnosis Note [id number] NILESH TAVARES MD [facility] [address] [address] 10/29/2024 10:19:27 10/29/2024 10:51:41 Lesion of tongue 635736849 K14.8 Cigarette smoker 7378661 7 F17.210 Health Concerns Section Related Observation LastModified by Organization Detai ls LastModified Time None Recorded Concern Status LastModified by Organization Details LastModified Time None Recorded Advance Directives Directive None Recorded Payers Insurance Date Sequence Insurance Name Policy Number Policy Melendrez Covered Member ID Melendrez Member ID Guarantor Name 10/29/2024 1 [facility] - [employer] [facility] (MEDICAID [facility]AC[facility] - HMO) [place] Frank [id number] Alison Frank Notes Date Note Type Note Provider Name and Address Organization Details Recorded Time 10/29/2024 text/html tongue lesionons et 1 yearuses a nail clipper to trim it off but it grows backsensitive with spicy food or acidictobacco 1ppd NILESH TAVARES MD [address] [place] [address], [phone], [place] - [facility] 10/29/2024 10:51:36 OBGyn Episode No OBEpisode recorded.
[2024-12-04 17:33] LABS: MANUAL DIFF FLAG NO
[2024-12-04 17:40] LABS: Hematocrit 39.7 % (37.0-47.0); Hemoglobin 13.4 g/dl (12.0-16.0); Imm Gran Abs Auto 0.03 X10*3/uL (0.00-0.03); Imm Gran Pct Auto 0.4 % (0.0-0.4); Lymphocytes Absolute Auto 2.7 X10*3/uL (1.2-4.9); Mean Corpuscular HGB Conc 33.8 g/dl (31.0-35.0); Mean Corpuscular Hemoglobin 34.0 pg (27.0-33.0); Mean Corpuscular Volume 100.8 fL (80.0-98.0); NRBC Abs Auto 0.000 X10*3/uL (0.0-0.012); NRBC Pct Auto 0.0 /100WBC (0.0-0.2); Platelet Count 236 X10*3/uL (160-400); Red Blood Count 3.94 X10*6/uL (4.20-5.50); White Blood Count 8.5 X10*3/uL (4.8-10.8)
[2024-12-04 18:03] LABS: Alanine Aminotransferase 16 U/L (0-31); Albumin Level 4.4 g/dL (3.5-5.0); Alkaline Phosphatase 114 U/L (39-117); Anion Gap 12 (12-20); Aspartate Amino Transferase 17 U/L (5-31); Blood Urea Nitrogen 13 mg/dL (9-16); Calcium 9.1 mg/dL (8.4-10.2); Carbon Dioxide 25 mmol/L (22-29); Chloride 110 mmol/L (96-108); Estimated Glomerular Filt Rate 55; Iron 106 mcg/dL (30-160); Percent Iron Saturation 37 % (15-50); Potassium 4.0 mmol/L (3.3-5.1); Sodium 143 mmol/L (135-145); Total Iron Binding Capacity 283 mcg/dL (228-428); Total Protein 7.1 g/dL (6.5-8.0); Unsaturated Iron Binding 177 ug/dL
[2024-12-04 18:18] LABS: Ferritin 95 ng/mL (10-250)
[2024-12-04 18:21] LABS: Erythrocyte Sedimentation Rate 20 MM/HR (0-20)
[2024-12-10 13:59] LABS: Anti Nuclear Antibody Pattern Nuclear, Homogeneous; Anti Nuclear Antibody Screen POSITIVE (NEGATIVE); Anti Nuclear Antibody Titer 1:320 titer; Vitamin D 25-OH, D2 <4 ng/mL; Vitamin D 25-OH, D3 18 ng/mL; Vitamin D 25-OH, Total 18 ng/mL (30-100)
== END 2024-12-04 14:06 | disposition home or self-care (01) ==
LOC: HO.HKASLDS 14:05
PROVIDERS: PCP Internal Medicine; Visit Provider Nurse Practitioner Family
DX: G43.109 Migraine with aura, not intractable, without status migrainosus (principal); M54.2 Cervicalgia; M54.50 Low back pain, unspecified; R20.2 Paresthesia of skin; S62.603D Fracture of unspecified phalanx of left middle finger, subsequent encounter for fracture with routine healing; W23.0XXD Caught, crushed, jammed, or pinched between moving objects, subsequent encounter; R53.83 Other fatigue; Z87.81 Personal history of (healed) traumatic fracture
CPT/HCPCS: 36415; 80053; 82306; 82728; 83540; 83921; 85025; 85652; 86038; 86039; 86140; 99212

== ENCOUNTER 2024-12-04 14:05 | Outpatient (AMB) | payer OTHER, SELFPAY ==
--- NOTE | 2024-12-04 14:42 | A.OFFVIS_ITS ---
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 Accompanied by: Self / Same As Patient Allergies azithromycin Allergy (Intermediate, Verified 12/04/24 14:43) Rash gabapentin Allergy (Intermediate, Verified 12/04/24 14:43) Unknown propranolol Allergy (Intermediate, Verified 12/04/24 14:43) Rash tramadol Allergy (Intermediate, Verified 12/04/24 14:43) Rash Medication List - Last Reconciled 12/04/24 by TARAS Millan albuterol sulfate 90 mcg/actuation 2 puffs inhalation Q6H PRN baclofen 10 mg PO BID 30 days bigxfxcgfs-vzyzcyzcwbplw-atdm 50-325-40 mg 1 tab PO Q4H PRN 30 days celecoxib (Celebrex) 100 mg PO Q12H 30 days galcanezumab-gnlm (Emgality Pen) 120 mg subcut ONCE 30 days ibuprofen 400 mg PO Q6H PRN magnesium citrate (Citrate of Magnesia oral) 30 - 60 mL PO BID PRN 7 days magnesium oxide 400 mg PO BEDTIME 30 days naproxen 500 mg PO BID PRN norethindrone (contraceptive) 0.35 mg PO DAILY nystatin topical DAILY pregabalin 25 mg PO TID 30 days riboflavin (vitamin B2) 400 mg PO DAILY 30 days sodium chloride 0.65% (Saline Nasal) 1 spray intranasal topiramate 50 mg (2 x 25 mg) PO BEDTIME 30 days zolmitriptan (Zomig) 1 spray intranasal Q2H PRN 30 days HPI Comments Details: 49-yr-old female presents for f/u visit of migraine and cervicalgia. Patient reports today that she is overall not doing well. She states that she recently slammed her left 3rd finger in a car door, and attempted to pull her finger out of the door without realizing it. She attributes this to a recent change in her medication, that was made by her PCP after she saw her PCP for exacerbation of her chronic low back pain. Patient states that she had just moved in a certain way and had sudden low back pain, with the back pain was so severe she dropped to the ground. She was seen at [facility] ER for the back pain, and then PCP office. L-spine x-ray showed moderate arthritic changes. Patient was started on sulindac and her baclofen was increased from 10 mg to 20 mg b.i.d. patient states that PCP wanted her to stop her pregabalin-as her PCP felt that she would look sedated, however initially patient did not want to stop this she felt that this was helping her and did not make her feel sedated. Today, patient states that she feels the sulindac is making her feel as if she is drunk and more fatigue. She also states she decrease the baclofen back to 10 mg twice a day, and has not been taking her pregabalin or Fioricet she is hesitant to take these right now. She also notes her PCP wants her to see PT and pain management, which she is open to doing. In terms of the left 3rd finger injury, x-ray show that she has a comminuted fracture. She has an initial orthopedic consult scheduled with [facility]. She is currently on Keflex for 4 more days in his wearing a finger splint. She states that the finger pain at least is distracting her from her back pain. She continues to have BUE paresthesias and neck pain. The pregabalin usually helps this somewhat, but understands that this is chronic pain. She would like to resume her pregabalin The Emgality has still been helpful, but she notes that with the increased stress including family stress, she has been having more migraines recently. She is also noticing more visual auras/seeing spots during her migraines. Migraine triggered by her cervical herniated disc and stress triggers the migraine as well- notes she is now carrying for her 13-year-old adopted sons daughter. Pt reports she is using Tylenol or naproxen, again not using her Fioricet. Though again she would like to resume her Fioricet as needed. Baseline headache characteristics: Has had visual aura- sees a pulsing red/orange halo around people. Severe, throbbing, headache is right frontal and moves into right back of neck a/w seeing spots, right eye twitching, mild photophobia, osmophobia, phonophobia, nausea, vomiting at times. [facility] Medical History (Updated 12/04/24 @ 17:28 by TARAS Millan) Foot fracture, left Broken neck Family History Mother Diabetes Bladder cancer Father HTN (hypertension) Brother HTN (hypertension) Social History Household Members: Spouse and Children Housing: Apartment Alcohol intake: never Patient Tobacco Use Status: Current everyday Tobacco user Cigarettes Per Day: 10 Years Smoked: 30 Substance Use Type: Marijuana Physical Exam Vital Signs: Last Vital Signs Pulse 68 12/04/24 14:43 BP 100/60 12/04/24 14:43 Pulse Ox 97 12/04/24 14:43 Oxygen Delivery Method Room Air 12/04/24 14:43 BMI result Body Mass Index 25.0 Const General: cooperative and no acute distress Orientation/consciousness: patient oriented x3 Resp Effort & Inspection: normal respiratory effort and able to speak in complete sentences Neuro General: patient oriented x3 Cranial nerves: Yes CN's II-XII intact bilaterally Cognition (Neuro): normal cognition Psych Appearance: grossly normal Mental Status: mental status grossly normal Speech and movement: Normal speech and movement present Affect: normal affect Attitude: cooperative Assessment & Plan Assessment & Plan (1) Fatigue: Code(s): R53.83 - Other fatigue Category: Medical Qualifiers: Fatigue type: other Qualified Code(s): R53.83 - Other fatigue (2) Joint pain: Code(s): M25.50 - Pain in unspecified joint Category: Medical Qualifiers: Joint pain location: unspecified Qualified Code(s): M25.50 - Pain in unspecified joint (3) Migraine with aura: Code(s): G43.109 - Migraine with aura, not intractable, without status migrainosus Category: Medical Qualifiers: Status migrainosus presence: without status migrainosus Intractability: not intractable Qualified Code(s): G43.109 - Migraine with aura, not intractable, without status migrainosus (4) Cervicalgia: Comment: h/o C4-C5 fracture at age 15, s/p cervical stabilization repair. Code(s): M54.2 - Cervicalgia Category: Medical (5) Paresthesia of left upper extremity: Code(s): R20.2 - Paresthesia of skin Category: Medical (6) Paresthesia and pain of right extremity: Code(s): M79.609 - Pain in unspecified limb; R20.2 - Paresthesia of skin Category: Medical Plan For worsening fatigue in setting of exacerbation of chronic back pain and recent left 3rd finger fracture: Check labs for common etiologies of fatigue Trial Celebrex 100 mg twice a day in place of sulindac-in hopes this is better tolerated. Advised to avoid all NSAIDs while taking Celebrex. Continue reduced baclofen dose at 10 mg twice a day. Orthopedic consult as scheduled. Concur with orders for PT and pain management consult. For left-sided neck pain and LLE pain and BUE paresthesias- Continue to hold pregabalin 25mg- 1-3 caps per day-until patient is feeling clear. Continue Baclofen 10mg qd-bid Previous trials: Gabapentin not tolerated, Cyclobenzaprine- not as effective as baclofen. diclofenac gel 1% qid prn- ineffective Future considerations: ACT therapy for pain management ? For migraine prevention: Magnesium 400 mg q.h.s. Continue topiramate 50mg qhs- would not increase further d/t dizziness. Continue emgality 120mg sc q month, as patient has overall had a good reduction in migraine frequency. April was increased due to increased stress related to the holidays. Previous preventive medication trials: propranolol- not tolerated. amitriptyline- eye twitching. Aimovig- did not tolerate- GI s/s ? For acute migraine tx: Hold Fioricet until she is feeling clear Trial Zomig 5 mg nasal spray, 1 nasal spray at onset of headache, may repeat in 2 hours. Max of 2 nasal sprays per 24 hours. May adjunct with OTC Tylenol 650mg every 4 hours every 12 hrs as needed. Potential adverse effects of triptans, include but are not limited to nausea, fatigue, chest tightness/tingling (usually passes within a few minutes), medication overuse headaches. Previous acute medication trials: Rizatriptan, Sumatriptan, Nurtec- ineffective. Ubrelvy 100mg- causes vomiting. ? Will follow-up upon review of above and patient to follow-up in clinic in 3-4 months or sooner prn. Orders: Orders Complete Blood Count Auto Diff Today M25.50 - Pain in unspecified joint, M79.609 - Pain in unspecified limb, R20.2 - Paresthesia of skin, R53.83 - Other fatigue Ferritin Today M25.50 - Pain in unspecified joint, M79.609 - Pain in unspecified limb, R20.2 - Paresthesia of skin, R53.83 - Other fatigue IRON PROFILE Today D64.9 - Anemia, unspecified, M25.50 - Pain in unspecified joint, M79.609 - Pain in unspecified limb, R20.2 - Paresthesia of skin, R53.83 - Other fatigue Erythrocyte Sedimentation Rate Today M25.50 - Pain in unspecified joint, M 79.609 - Pain in unspecified limb, R20.2 - Paresthesia of skin, R53.83 - Other fatigue Comprehensive Met. Panel Today M25.50 - Pain in unspecified joint, M79.609 - Pain in unspecified limb, R20.2 - Paresthesia of skin, R53.83 - Other fatigue Vitamin D 25-OH (D2 and D3) Today M25.50 - Pain in unspecified joint, M79.609 - Pain in unspecified limb, R20.2 - Paresthesia of skin, R53.83 - Other fatigue Vitamin B12 and Folate Today M25.50 - Pain in unspecified joint, M79.609 - Pain in unspecified limb, R20.2 - Paresthesia of skin, R53.83 - Other fatigue Methylmalonic Acid Today M25.50 - Pain in unspecified joint, M79.609 - Pain in unspecified limb, R20.2 - Paresthesia of skin, R53.83 - Other fatigue C Reactive Protein Today M25.50 - Pain in unspecified joint, M79.609 - Pain in unspecified limb, R20.2 - Paresthesia of skin, R53.83 - Other fatigue LUCHO Reflex Titer and Pattern Today M25.50 - Pain in unspecified joint, M79.609 - Pain in unspecified limb, R20.2 - Paresthesia of skin, R53.83 - Other fatigue Rheumatoid Factor Today M25.50 - Pain in unspecified joint, M79.609 - Pain in unspecified limb, R20.2 - Paresthesia of skin, R53.83 - Other fatigue Medications: New celecoxib (Celebrex) 100 mg PO Q12H 60 caps 1RF 30 days zolmitriptan (Zomig) administer into one nostril (only); alternate nostrils; do not exceed 10 mg /24 hrs 1 spray intranasal Q2H PRN 6 ea 3RF migraine with nausea 30 days cephalexin x's more days d/t left 3rd finger fracture/laceration. 500 mg PO QID magnesium citrate (Citrate of Magnesia oral) 30 - 60 mL PO BID PRN 296 mL 1RF constipation 7 days Refilled baclofen 10 mg PO BID 60 tabs 4RF 30 days Coding Level of Care Code Est Pt Level 4 (89671) Diagnoses Other fatigue R53.83 Fatigue type: other Arthralgia, unspecified joint M25.50 Joint pain location: unspecified Migraine with aura and without status migrainosus, not intractable G43.109 Status migrainosus presence: without status migrainosus Intractability: not intractable Cervicalgia M54.2 Paresthesia of left upper extremity R20.2 Paresthesia and pain of right extremity M79.609; R20.2
[2024-12-04 14:43] VITALS: BP 100/60; PULSE 68; O2SAT 97; BMI 25.0
== END 2024-12-04 15:46 | disposition home or self-care (01) ==
LOC: HO.HSMS 14:06
PROVIDERS: PCP Internal Medicine; Visit Provider Nurse Practitioner Family
DX: R53.83 Other fatigue (principal); M25.50 Pain in unspecified joint; G43.109 Migraine with aura, not intractable, without status migrainosus; M54.2 Cervicalgia; R20.2 Paresthesia of skin; M79.609 Pain in unspecified limb
CPT/HCPCS: 99214

== ENCOUNTER 2024-12-09 13:32 | Outpatient (REF) | payer OTHER, SELFPAY ==
--- OUTSIDE RECORDS SUMMARY | 2024-12-09 14:42 | XMS_ITS | Data Portability ---
Author Organization [place] - [facility], Allergy Address [address] [place] [phone] Care Team Providers Care Internist Name Role Phone NIYA DENISE Primary Care [...] Organization Details Recorded Time Lesion of tongue 309564875 Active 025 NILESH TAVARES MD [address], [phone], [place] - [facility] 5 10:48:36 Cigarette smoker 88168528 Active 025 NILESH TAVARES MD [address] [place] [address], [phone], [facility] - [facility] 5 10:51:21 Problem Notes None recorded. Medical Equipment None Reported. Allergies Allergen ID Allergen Name Allergen Category Reaction Reaction Severity Criticality Documentation Date Start Date Code Code System Note Provider Name and Address Organization Details Recorded Time 885863 Substance with sulfonami de structure and antibacte rial mechanism of action (substanc e) medicatio n Not available Not available Not available 10/29/2024 00143 8003 SNOMED ONEL ASHLEY frey [facility] 5 10:37:51 Medications Name Sig Start [...] Updated DateTime 10/29/2024 175.26 cm 25.1 kg/m2 61905.7 g ONEL RAMIREZ [place] - [facility] 10/29/2024 10:37:44 Social History None recorded. [...] SNOMED-CT Code Diagnosis ICD10 Code Diagnosis Note [id number] NILESH TAVARES MD [facility] [address] [address] 10/29/2024 10:19:27 10/29/2024 10:51:41 Lesion of tongue 663083821 K14.8 Cigarette smoker 8875867 7 F17.210 Health Concerns Section Related Observation LastModified by Organization Detai ls LastModified Time None Recorded Concern Status LastModified by Organization Details LastModified Time None Recorded Advance Directives Directive None Recorded Payers Insurance Date Sequence Insurance Name Policy Number Policy Melendrez Covered Member ID Melendrez Member ID Guarantor Name 10/29/2024 1 [facility] - [email or web address]ID [facility]PLAC[facility] - HMO) [place]ILLA Frank [id number] Alison Frank Notes Date Note Type Note Provider Name and Address Organization Details Recorded Time 10/29/2024 text/html tongue lesionons et 1 yearuses a nail clipper to trim it off but it grows backsensitive with spicy food or acidictobacco 1ppd NILESH TAVARES MD [address] [place] [address], [phone], [place] - [facility] 10/29/2024 10:51:36 OBGyn Episode No OBEpisode recorded.
[2024-12-09 18:58] LABS: Folate 2.6 ng/mL (> or = 4.0); Vitamin B12 616 pg/mL (200-900)
== END 2024-12-09 13:33 | disposition home or self-care (01) ==
LOC: HO.HKASLDS 13:32
PROVIDERS: Visit Provider Nurse Practitioner Family
DX: R53.83 Other fatigue (principal); R20.2 Paresthesia of skin; M25.50 Pain in unspecified joint; M79.609 Pain in unspecified limb
CPT/HCPCS: 36415; 82607; 82746; 86431

== ENCOUNTER 2024-12-23 15:35 | Outpatient (REF) | payer OTHER, SELFPAY ==
--- OUTSIDE RECORDS SUMMARY | 2024-12-23 15:58 | XMS_ITS | Clinical Summary ---
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 LAB BLOOD ORDERABLES Fi nal Result [facility] [address] [place] [address], [place] [phone] * (ABNORMAL) Comprehensive metabolic panel (09/30/2024 2:21 PM EDT) Sodium 141 133 - 145 mmol/L LAB CHEMISTRY METHOD 09/30/2024 4:24 PM [facility] Potassium 4.1 3.5 - 5.5 mmol/L LAB CHEMISTRY METHOD 09/30/2024 4:24 PM [facility] Chloride 107 96 - 110 mmol/L LAB CHEMISTRY METHOD 09/30/2024 4:24 PM [facility] CO2 26 21 - 32 mmol/L LAB CHEMISTRY METHOD 09/30/2024 4:24 PM [facility] Anion Gap 8 3 - 11 LAB CHEMISTRY METHOD 09/30/2024 4:24 PM [facility] Glucose 91 70 - 100 mg/dL LAB CHEMISTRY METHOD 09/30/2024 4:24 PM [facility] BUN 11 5 - 25 mg/dL LAB CHEMISTRY METHOD 09/30/2024 4:24 PM [facility] Creatinine 0.95 0.50 - 1.10 mg/dL LAB CHEMISTRY METHOD 09/30/2024 4:24 PM [facility] eGFR 73 >=60 mL/min/1. 73m2 LAB CHEMISTRY METHOD 09/30/2024 4:24 PM [facility] Comment:Calculation based on the Chronic Kidney Disease Epidemiology Collaboration (CKD-EPI) equation refit without adjustment for race. BUN/Creatinine Ratio 11.6 LAB CHEMISTRY METHOD 09/30/2024 4:24 PM [facility] Calcium 8.8 8.5 - 10.5 mg/dL LAB CHEMISTRY METHOD 09/30/2024 4:24 PM [facility] AST (SGOT) 15 10 - 42 unit/L LAB CHEMISTRY METHOD 09/30/2024 4:24 PM [facility] ALT (SGPT) 21 10 - 60 unit/L LAB CHEMISTRY METHOD 09/30/2024 4:24 PM [facility] Alkaline Phosphatase 128(H) 42 - 121 unit/L LAB CHEMISTRY METHOD 09/30/2024 4:24 PM [facility] Total Protein 7.2 6.0 - 8.0 g/dL LAB CHEMISTRY METHOD 09/30/2024 4:24 PM [facility] Albumin 4.0 3.2 - 5.0 g/dL LAB CHEMISTRY METHOD 09/30/2024 4:24 PM [facility] Total Bilirubin 0.4 0.0 - 1.4 mg/dL LAB CHEMISTRY METHOD 09/30/2024 4:24 PM [facility] Blood Venous blood specimen / Unknown Venipuncture / Unknown 09/30/2024 2:21 PM EDT 09/30/2024 2:21 PM EDT us Blaine Olmstead PA LAB BLOOD ORDERABLES Fi nal Result [facility] [address] [place] [address], * Depression Screening (10/12/2023) Depression Screening Abstracted Historical Provider MD HEALTH MAINTENANCE Final Result * Cervical Cancer Screening: HPV (03/17/2020) Cervical Cancer Screening: HPV Abstracted, Negative Historical Provider HEALTH MAINTENANCE Final Result from Last 3 Months or Most Recently Relevant to Health Maintenance Insurance [facility] [employer] Advance Directives Documents on File Type Date Recorded Patient Care Director Rn Expl anation Health Care Decision (hx) 01/06/2021 AD JORGENSEN DIRECTIVE Health Care Decision (hx) 01/05/2021 AD JORGENSEN DIRECTIVE Care Teams Editorial Project Manager Relationship Specialty Start Date End Date Noman Go MD [address] [place] [address] PCP - General Internal Medicine 10/14/21
--- OUTSIDE RECORDS SUMMARY | 2024-12-23 15:59 | XMS_ITS ---
Author Name [facility] Organization Unknown Care Team Organization Name Specialty Phone Email Start Date End Da te [facility] Noman Go Primary Care 07/26/20222023 [facility] Nicolle Broussard Primary Care 03/28/2022
[2024-12-23 18:19] LABS: Appearance Urine Clear; Glucose Urine UA Negative (Negative); PH 6.5 (5.0-9.0); Specific Gravity - Urine 1.010 (1.005-1.025)
[2024-12-23 19:39] LABS: Total Protein Urine Random < 7 mg/dL (<12)
== END 2024-12-23 15:36 | disposition home or self-care (01) ==
LOC: HO.HKASLDS 15:35
PROVIDERS: Visit Provider Nurse Practitioner Family
DX: E53.8 Deficiency of other specified B group vitamins (principal); R76.8 Other specified abnormal immunological findings in serum; R53.83 Other fatigue; M25.50 Pain in unspecified joint
CPT/HCPCS: 36415; 81001; 82570; 84156; 86160; 86225

== ENCOUNTER 2025-02-04 13:11 | Outpatient (AMB) | payer OTHER, SELFPAY ==
--- NOTE | 2025-02-04 13:13 | MHC.OFFVIS ---
Vital Signs 02/04/25 13:15 Height 5 ft 9 in Weight 160 lb BMI 23.6 BP 102/76 Blood Pressure Location Lt brachial Position Sitting Respiration 18 Pulse 95 Pulse Source Pulse Oximeter Pulse Oximetry (%) 96 Oxygen Delivery Method Room Air Intake Visit Reasons: Chronic cristina lower back pain r/s from 01/15 Allergies azithromycin Allergy (Intermediate, Verified 02/04/25 13:16) Rash gabapentin Allergy (Intermediate, Verified 02/04/25 13:16) Unknown propranolol Allergy (Intermediate, Verified 02/04/25 13:16) Rash tramadol Allergy (Intermediate, Verified 02/04/25 13:16) Rash HPI Comments Details: Alison is very pleasant 49 years old female who presents in my office with complains on severe bilateral neck pain as well as axial back pain. Her neck pain is stemming out of the postlaminectomy syndrome. She was examined by Dr. Hensley in the past and the what diagnosis of spinal myelomalacia was introduced. She had anterior and posterior fusion on her neck. The most significant problem is a pain in the back. She reports that her problem started 2 years ago. The pain in the back is axial and does not radiate to the bilateral lower extremities. The pain in severity is 5/10. Because of her pain she can not sleep normally can not do activities of daily living can not take care of herself and can not function normally. She is on permanent disability. She did not work for past 10 years. She is self mobile. Weather changes in movements aggravate her pain. Heat applications topical medications and oral medications make her pain better. In terms of tissue damage he describes her pain as jumping, flushing, shooting, spreading, radiating, piercing sensation. For her pain control she takes baclofen, Lyrica, tylenol and Motrin. There is no images available of the lumbar spine there is an MRI of the cervical spine in the chart. The patient did not have physical therapy not in 10 years, she never received any injections. Her past medical history significant for asthma. She had 2 fusions of the neck 1st anterior fusion in 1992 and then posterior fusion in 2014. Social history she admits smoking cigarettes half a pack per day denies drinking alcohol she drinks soda and energy drinks which helps her with her migraines and she admits cannabis. She states that she take 1/2 g a day of cannabis formulation. [facility] Medical History (Updated 02/04/25 @ 13:42 by John Dubois MD) Foot fracture, left Broken neck Family History Mother Diabetes Bladder cancer Father HTN (hypertension) Brother HTN (hypertension) Social History Household Members: Spouse and Children Housing: Apartment Alcohol intake: never Patient Tobacco Use Status: Current everyday Tobacco user Cigarettes Per Day: 10 Years Smoked: 30 Substance Use Type: Marijuana Review of Systems Const All systems reviewed & are unremarkable except as noted in HPI and below ENT Reports Normal hearing present Neuro Reports Normal hearing present, Denies Abnormal speech present, Denies confusion and Denies Sensory deficit (Neuro) Psych Denies confusion Physical Exam Vital Signs: Last Vital Signs Pulse 95 02/04/25 13:15 Resp 18 02/04/25 13:15 BP 102/76 02/04/25 13:15 Pulse Ox 96 02/04/25 13:15 Oxygen Delivery Method Room Air 02/04/25 13:15 BMI result Body Mass Index 23.6 Const General: no acute distress; No confusion Orientation/consciousness: patient oriented x3 and No confusion Eyes General: appearance normal, both eyes and all related structures Pupils: Equal, round and reactive pupils present EOM: EOMs intact bilaterally Neck Other: There is anterior neck incision delineating anterior fusion and there is a scar on the posterior surface of the neck starting from she 3 approximately are going down all the way to T1 vertebra. The scar is very well-healed. Neck: Yes full ROM Chest Chest palpation & inspection: normal inspection of the chest Resp Effort & Inspection: normal respiratory effort, able to speak in complete sentences, normal respiratory pattern, no audible wheezes and no cough Cardio Jugular venous distension: no JVD GI Inspection: Yes normal to inspection Back/Spine/Pelvis Other: She is able to stand on bilateral tiptoes however was difficult which demonstrates weakness of the bilateral lower extremities. She is able to stand on bilateral heels with no problems. That might be coming from myelomalacia and loss of coordination. She is able to flex herself forward and backwards without any difficulty. Loading test is negative bilaterally. Petey test, Gaenslen test, pelvic compression test are positive on the on the left. SLR is negative bilaterally. Lasegue test is negative bilaterally. Neuro General: patient oriented x3, gait normal and No confusion Cranial nerves: Yes CN's II-XII intact bilaterally, Yes Equal, round and reactive pupils present, Yes Normal hearing present and Yes Ability to bilaterally elevate shoulders present Speech: No Abnormal speech present Gait exam (Neuro): Normal gait present Motor exam (neuro): 5/5 motor strength present throughout Sensory Exam: No Sensory deficit (Neuro) Extrem General: No pedal edema Psych Speech and movement: Normal speech and movement present Affect: normal affect Attitude: cooperative Thought process: Normal thought process present Thought content: Normal thought content present Insight: Good insight present (Psych) Judgement: Good judgement present (Psych) Assessment & Plan Assessment & Plan (1) Postlaminectomy syndrome, cervical: Code(s): M96.1 - Postlaminectomy syndrome, not elsewhere classified Category: Medical (2) Cervicalgia: Comment: h/o C4-C5 fracture at age 15, s/p cervical stabilization repair. Code(s): M54.2 - Cervicalgia Category: Medical (3) Sacroiliitis: Code(s): M46.1 - Sacroiliitis, not elsewhere classified Category: Medical (4) Pain of left sacroiliac joint: Code(s): M53.3 - Sacrococcygeal disorders, not elsewhere classified Category: Medical Plan This patient would be a good candidate for the left diagnostic sacroiliac joint injection. If this procedure will help her pain I can offer her some options to treat this condition. I told her if she will be able to quit her smoking the range of her options will be extended. The pain in the neck is postlaminectomy syndrome. It was laminotomy cervical spine with stabilization. Potentially treatment with intrathecal drug delivery system pain pump in cervical positioned could be considered for this patient provided that she will be able to stop smoking. I told the patient that she needs to go for physical therapy before we will try sacroiliac joint injection on the left. She will complete 8 sessions and she will schedule appointment with me after she will complete 8 sessions of physical therapy. Orders: Orders PT Evaluation and Treatment Today M46.1 - Sacroiliitis, not elsewhere classified, M53.3 - Sacrococcygeal disorders, not elsewhere classified Coding Level of Care Code New Pt Level 3 (30454) Diagnoses Postlaminectomy syndrome, cervical M96.1 Cervicalgia M54.2 Sacroiliitis M46.1 Pain of left sacroiliac joint M53.3
[2025-02-04 13:15] VITALS: BP 102/76; PULSE 95; RESP 18; O2SAT 96; BMI 23.6
--- OUTSIDE RECORDS SUMMARY | 2025-02-04 16:50 | XMS_ITS | Encounter Summary ---
Author Organization [facility] Address [address] [place] [address] Care Team Providers Care Trust Advisor Name Role Phone Tito Bojorquez MD Primary Care Provider Unavail able Noman Go MD Primary Care Provider [phone] Encounter Details Date Type Department Care Team Description 03/20/2018 Release of Information Medical Records [address] [place] [address] Abstract, Provider Social History Tobacco Use Types Packs/Day Years Used Date Smoking Tobacco: Every Day Cigarettes 0.5 Started: 09/10/1987 Smokeless Tobacco: Never Alcohol Use Standard Drinks/Week Comments No 0 (1 standard drink = 0.6 oz pur e alcohol) Sex Assigned at Date Recorded Not on file Job Start Date Occupation Industry Not on file Not on file Not on file documented as of this encounter Plan of Treatment Not on file documented as of this encounter Visit Diagnoses Not on filedocumented in this encounter Additional Health Concerns Infection Onset Date Last Indicated Resolved Time COVID-19 03/17/2021 03/17/2021 05/27/2021 1:21 PM EST documented as of this encounter Care Teams Trust Advisor Relationship Specialty Start Date End Date Tito Bojorquez MD PCP - General Internal Medicine 08/27/15 10/13/21 Noman Go MD [address] [place] [id number] PCP - General Internal Medicine 10/14/21 documented as of this encounter
--- OUTSIDE RECORDS SUMMARY | 2025-02-04 16:50 | XMS_ITS | Encounter Summary ---
Author Organization [facility] Address [address] [place] [address] Care Team Providers Care Cargo Router Name Role Phone Noman Go MD Primary Care Provider [phone] Encounter Details Date Type Department Care Team Description 11/01/2023 High Lift Mule Operator Report Medical Records [address] [place] [address] Mireille Monroy Social History Tobacco Use Types Packs/Day Years Used Date Smoking Tobacco: Every Day Cigarettes 0.5 Started: 09/10/1987 Smokeless Tobacco: Never Comments:less than half pack a day Alcohol Use Standard Drinks/Week Comments No 0 (1 standard drink = 0.6 oz pur e alcohol) Sex Assigned at Date Recorded Not on file Job Start Date Occupation Industry Not on file Not on file Not on file documented as of this encounter Plan of Treatment Not on file documented as of this encounter Visit Diagnoses Not on filedocumented in this encounter Care Teams Cargo Router Relationship Specialty Start Date End Date Noman Go MD [address] [place] [id number] PCP - General Internal Medicine 10/14/21 documented as of this encounter
--- OUTSIDE RECORDS SUMMARY | 2025-02-04 16:50 | XMS_ITS | Encounter Summary ---
Author Organization [facility] Address [address] [place] [address] Care Team Providers Care Chemical Equipment Repairer Name Role Phone Tito Bojorquez MD Primary Care Provider Unavail able Noman Go MD Primary Care Provider [phone] Reason for Visit * Reason Onset Date Comments refill request 07/06/2017 Encounter Details Date Type Department Care Team Description 07/06/2017 Refill Adult Medicine [address] [address] Tito Bojorquez MD refill request Social History Tobacco Use Types Packs/Day Years Used Date Smoking Tobacco: Every Day Cigarettes 0.5 Started: 09/10/1987 Smokeless Tobacco: Never Alcohol Use Standard Drinks/Week Comments No 0 (1 standard drink = 0.6 oz pur e alcohol) Sex Assigned at Date Recorded Not on file Job Start Date Occupation Industry Not on file Not on file Not on file documented as of this encounter Miscellaneous Notes * Telephone Encounter - Sierra Khan M.A. - 07/06/2017 4:59 PM EST Spoke with Pt and let her know to keep her Appointmnet. She would like Dr. Bojorquez to know that her headaches have intensified. * Telephone Encounter - Tito Bojorquez MD - 07/06/2017 4:33 PM EST Printed, needs to keep upcoming appointment however * Telephone Encounter - Kate Lugo M.A. - 07/06/2017 4:27 PM EST grady 11.17.16 No csc Last rx was 25 on 03.26.17 * Telephone Encounter - Meme Hein - 07/06/2017 3:07 PM EST Patient would like script to be: E-PRESCRIBED/FAXED TO PHARMACY WHEN WAS THE PATIENT'S LAST APPOINTMENT IN ADULT MEDICINE? 11/17/16 WHEN WAS THE LAST TIME THE PATIENT SAW THEIR PCP? Same as above Does patient have an upcoming appointment? Yes 07/16/17 (THE MEDICATION REQUESTED IS ON THE MED LIST ABOVE) All of the medications requested were on the CURRENT MEDS list Did you check the Pharmacy information above?: YES Patient wants: 30 -day supply Is this a mail order prescription request ? NO Patients current insurance carrier is: Payor: [employer] / Plan: [employer] $0 [id number] / Product Type: MEDICAID [id number] documented in this encounter Plan of Treatment Not on file documented as of this encounter Visit Diagnoses Not on filedocumented in this encounter Additional Health Concerns Infection Onset Date Last Indicated Resolved Time COVID-19 03/17/2021 03/17/2021 05/27/2021 1:21 PM EST documented as of this encounter Care Teams Chemical Equipment Repairer Relationship Specialty Start Date End Date Tito Bojorquez MD PCP - General Internal Medicine 08/27/15 10/13/21 Noman Go MD [address] [place] [id number] PCP - General Internal Medicine 10/14/21 documented as of this encounter
--- OUTSIDE RECORDS SUMMARY | 2025-02-04 16:50 | XMS_ITS | Encounter Summary ---
Author Organization [facility] Address [address] [place] [address] Care Team Providers Care Loss Claim Clerk Name Role Phone Tito Bojorquez MD Primary Care Provider Unavail able Noman Go MD Primary Care Provider [phone] Encounter Details Date Type Department Care Team Description 11/20/2016 [facility] Medical Records [address] [place] [address] Abstract, Provider Social History Tobacco Use Types [...] documented as of this encounter Care Teams Loss Claim Clerk Relationship Specialty Start Date End Date Tito Bojorquez MD PCP - General Internal Medicine 08/27/15 10/13/21 Noman Go MD [address] [place] [id number] PCP - General Internal Medicine 10/14/21 documented as of this encounter
--- OUTSIDE RECORDS SUMMARY | 2025-02-04 16:50 | XMS_ITS | Encounter Summary ---
Author Organization [facility] Address [address] [place] [address] Care Team Providers Care Supervisor Riveting Name Role Phone Tito Bojorquez MD Primary Care Provider Unavail able Noman Go MD Primary Care Provider [phone] Reason for Visit * Reason Onset Date Comments Provider Call Back 03/21/2019 Encounter Details Date Type Department Care Team Description 03/21/2019 Telephone Adult Medicine [address] [address] Tito Bojorquez MD Provider Call Back Social History Tobacco Use Types Packs/Day Years [...] Telephone Encounter - Sierra Khan M.A. - 03/21/2019 5:03 PM EDT LMOM for call back. [place] x [phone] * Telephone Encounter - Tito Bojorquez MD - 03/21/2019 4:23 PM EDT I'm sorry but the question of daily preventative med will need to come from her neurologist * Telephone Encounter - Melisa Giron R.N. - 03/21/2019 3:57 PM EDT Patient was referred to neurology by Dr. Bojorquez to see Dr. Mahajan for headache. States originally, Dr. Mahajan Rx'ed Effexor, but this made her feel sick. She received a voicemail telling her to switch to Inderal 10 mg- BID. Patient noted that she had a severe allergic rxn to this medication and didn't take. She is calling us now upset that Dr. Mahajan doesn't know her allergies. I called Dr. Mahajan's office, verified that she was switched to Inderal [address] Mahajan is OUT of the office forthe PM. No providers there to cover. Asking If Dr. Bojorquez can prescribe her an alternative for the weekend and pt call Dr. Mahajan's office on Sunday for alternative? * Telephone Encounter - Yany Tomlinson - 03/21/2019 3:19 PM EDT Caller requesting call back from provider: Is the caller the patient? YES If caller is not the patient, what is the callers name? N/A Callers relationship to patient? N/A If person calling is not the patient themselves, is there a verbal release in FYI or permanent comments for this person: NO Reason for call back: Patient is asking if it is possible for to speak with whohe referred her to regarding her care because she feels that is not listening to her. prescribed Inderal for her and it is something that she is severely allergic too which is clearly noted in her chart. She refuses to take that medication. Caller offered to speak with the nurse for assistance: YES Response: Patient offered to speak with nurse for assistance and patient agreed. Message forwarded to nurse. documented in this encounter Plan of Treatment Not on file documented as of this encounter Visit Diagnoses Not on filedocumented in this encounter Additional Health Concerns Infection Onset Date Last Indicated Resolved Time COVID-19 03/17/2021 03/17/2021 05/27/2021 1:21 PM EST documented as of this encounter Care Teams Supervisor Riveting Relationship Specialty Start Date End Date Tito Bojorquez MD PCP - General Internal Medicine 08/27/15 10/13/21 Noman Go MD [address] [place] [id number] PCP - General Internal Medicine 10/14/21 documented as of this encounter
--- OUTSIDE RECORDS SUMMARY | 2025-02-04 16:50 | XMS_ITS | Encounter Summary ---
Author Organization [facility] Address [address] [place] [address] Care Team Providers Care Manager Zone Name Role Phone Tito Bojorquez MD Primary Care Provider Unavail able Noman Go MD Primary Care Provider [phone] Encounter Details Date Type Department Care Team Description 03/05/2019 Manager Financial Reporting Report Medical Records [address] [place] [address] Sanjay Mahajan MD Social History Tobacco Use Types Packs/Day Years [...] documented as of this encounter Care Teams Manager Zone Relationship Specialty Start Date End Date Tito Bojorquez MD PCP - General Internal Medicine 08/27/15 10/13/21 Noman Go MD [address] [place] [id number] PCP - General Internal Medicine 10/14/21 documented as of this encounter
--- OUTSIDE RECORDS SUMMARY | 2025-02-04 16:50 | XMS_ITS | Encounter Summary ---
Author Organization [facility] Address [address] [place] [address] Care Team Providers Care Engineering Inspection Assistant Name Role Phone Tito Bojorquez MD Primary Care Provider Unavail able Noman Go MD Primary Care Provider [phone] Reason for Visit * Reason Onset Date Comments Faxed Refill 08/01/2021 norethindrone (M ICRONOR) 0.35 MG tablet APPOINTMENT 08/01/2021 annual needed Encounter Details Date Type Department Care Team Description 08/01/[address] [facility] [address] [place] [address] Keisha Givens, [facility] [address] [place], [place] [id number] Faxed Refill (norethindrone (MICRONOR) 0.35 MG tablet); APPOINTMENT (annual needed ) Social History Tobacco Use Types Packs/Day Years [...] file Not on file Not on file COVID-19 Exposure Response Date Recorded In the last month, have you been in contact with someone who was confirmed or suspected to have Coronavirus / COVID-19? No / Unsure 07/19/2021 10:29 AM EST documented as of this encounter Miscellaneous Notes * Telephone Encounter - Academic Affairs AssistantJann Mak - 08/01/2021 3:10 PM EDT Called pt to schedule annual appt. No answer. Lvm * Telephone Encounter - Mirtha Bob - 08/01/2021 1:37 PM EDT WHEN WAS THE PATIENTS LAST ANNUAL MERGERS AND ACQUISITIONS ASSOCIATE EXAM? 09/08/20 Does patient have an upcoming appointment? No - LEFT MESSAGE ON [employer] (THE MEDICATION REQUESTED IS ON THE MED LIST ABOVE) Did you check the Pharmacy information above?: YES Indicate how soon the patient needs the script: OK FOR NEXT DAY Patient would like script to be: E-PRESCRIBED/FAXED TO PHARMACY Is the doctor here today?: NO Can the message wait until the doctor returns?: NO Has the patient been told that the prescription will not be filled until the end of the day? NO Payor: [employer]FS / Plan: [facility] / Product Type: MEDICAID RISK documented in this encounter Plan of Treatment Not on file documented as of this encounter Visit Diagnoses Not on filedocumented in this encounter Care Teams Engineering Inspection Assistant Relationship Specialty Start Date End Date Tito Bojorquez MD PCP - General Internal Medicine 08/27/15 10/13/21 Noman Go MD [address] [place] [id number] PCP - General Internal Medicine 10/14/21 documented as of this encounter
--- OUTSIDE RECORDS SUMMARY | 2025-02-04 16:50 | XMS_ITS | Encounter Summary ---
Author Organization [facility] Address [address] [place] [address] Care Team Providers Care Switcher Name Role Phone Tito Bojorquez MD Primary Care Provider Unavail able Noman Go MD Primary Care Provider [phone] Reason for Visit * Reason Onset Date Comments radiology 11/18/2015 mri testing. Encounter Details Date Type Department Care Team Description 11/18/2015 Telephone Medicine/Pediatrics [address] [phone] Tito Bojorquez MD radiology (mri testing.) Social History Tobacco Use Types Packs/Day Years Used Date Smoking Tobacco: Every Day Cigarettes 0.8 Started: 09/10/1987 Smokeless Tobacco: Never Alcohol Use Standard Drinks/Week Comments No 0 (1 standard drink = 0.6 oz pur e alcohol) Sex Assigned at Date Recorded Not on file Job Start Date Occupation Industry Not on file Not on file Not on file documented as of this encounter Miscellaneous Notes * Telephone Encounter - Vanda Mac - 11/18/2015 10:07 AM EDT Alison Frank declined the mri left shoulder you requested, states she is following up with Dr. Palacios. Thanks. Vanda, Mri Department. documented in this encounter Plan of Treatment Not on file documented as of this encounter Visit Diagnoses Not on filedocumented in this encounter Additional Health Concerns Infection Onset Date Last Indicated Resolved Time COVID-19 03/17/2021 03/17/2021 05/27/2021 1:21 PM EST documented as of this encounter Care Teams Switcher Relationship Specialty Start Date End Date Tito Bojorquze MD PCP - General Internal Medicine 08/27/15 10/13/21 Noman Go MD [address] [place] [address] PCP - General Internal Medicine 10/14/21 documented as of this encounter
--- OUTSIDE RECORDS SUMMARY | 2025-02-04 16:50 | XMS_ITS | Encounter Summary ---
Author Organization [facility] Address [address] [place] [address] Care Team Providers Care Knock Out Hand Name Role Phone Tito Bojorquez MD Primary Care Provider Unavail able Noman Go MD Primary Care Provider [phone] Encounter Details Date Type Department Care Team Description 10/19/2018 Release of Information Medical Records [address] [place] [address] Abstract, Provider Social History Tobacco Use Types [...] documented as of this encounter Care Teams Knock Out Hand Relationship Specialty Start Date End Date Tito Bojorquez MD PCP - General Internal Medicine 08/27/15 10/13/21 Noman Go MD [address] [place] [address] PCP - General Internal Medicine 10/14/21 documented as of this encounter
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
--- OUTSIDE RECORDS SUMMARY | 2025-02-04 16:50 | XMS_ITS | Encounter Summary ---
Author Organization [facility] Address [address] [place] [address] Care Team Providers Care Retort Load Expediter Name Role Phone Tito Bojorquez MD Primary Care Provider Unavail able Noman Go MD Primary Care Provider Encounter Details Date Type Department Care Team Description 07/17/2016 Partner Alliance Manager Report Medical Records [address] [place] [address] Davey Hamilton Social History Tobacco Use Types Packs/Day Years [...] documented as of this encounter Care Teams Retort Load Expediter Relationship Specialty Start Date End Date Tito Bojorquez MD PCP - General Internal Medicine 08/27/15 10/13/21 Noman Go MD [address] [place] [address] PCP - General Internal Medicine 10/14/21 documented as of this encounter
--- OUTSIDE RECORDS SUMMARY | 2025-02-04 16:50 | XMS_ITS | Encounter Summary ---
Author Organization [facility] Address [address] [place] [address] Care Team Providers Care Corduroy Cutting Supervisor Name Role Phone Tito Bojorquez MD Primary Care Provider Unavail able Noman Go MD Primary Care Provider [phone] Encounter Details Date Type Department Care Team Description 01/05/2021 Hospital Medical Records [address] [place] [address] John Hickman MD [address] [place] [address] [address] [facility] [place] [address] Social History Tobacco Use Types Packs/Day Years [...] have Coronavirus / COVID-19? No / Unsure 12/21/2020 2:14 PM EDT documented as of this encounter Plan of Treatment Not on file documented as of this encounter Visit Diagnoses Not on filedocumented in this encounter Additional Health Concerns Infection Onset Date Last Indicated Resolved Time COVID-19 03/17/2021 03/17/2021 05/27/2021 1:21 PM EST documented as of this encounter Care Teams Corduroy Cutting Supervisor Relationship Specialty Start Date End Date Tito Bojorquez MD PCP - General Internal Medicine 08/27/15 10/13/21 Noman Go MD [address] [place] [address] PCP - General Internal Medicine 10/14/21 documented as of this encounter
--- OUTSIDE RECORDS SUMMARY | 2025-02-04 16:50 | XMS_ITS | Encounter Summary ---
Author Organization [facility] Address [address] [place] [address] Care Team Providers Care Claim Specialist Name Role Phone Tito Bojorquez MD Primary Care Provider Unavail able Noman Go MD Primary Care Provider [phone] Encounter Details Date Type Department Care Team Description 09/10/2015 Release of Information Medical Records [address] [place] [id number] Abstract, Provider Social History Tobacco Use Types Packs/Day Years Used Date Smoking Tobacco: Every Day Cigarettes 1 Started: 09/10/1987 Smokeless Tobacco: Never Alcohol Use [...] documented as of this encounter Care Teams Claim Specialist Relationship Specialty Start Date End Date Tito Bojorquez MD PCP - General Internal Medicine 08/27/15 10/13/21 Noman Go MD [address] [place] [address] PCP - General Internal Medicine 10/14/21 documented as of this encounter
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
--- OUTSIDE RECORDS SUMMARY | 2025-02-04 16:50 | XMS_ITS | Encounter Summary ---
Author Organization [facility] Address [address] [place] [address] Care Team Providers Care Manager Food Safety Name Role Phone Tito Bojorquez MD Primary Care Provider Unavail able Noman Go MD Primary Care Provider [phone] Encounter Details Date Type Department Care Team Description 06/21/2018 Release of Information Medical Records [address] [place] [id number] Abstract, Provider Social History Tobacco Use Types [...] as of this encounter Care Teams Manager Food Safety Relationship Specialty Start Date End Date Tito Bojorquez MD PCP - General Internal Medicine 08/27/15 10/13/21 Noman Go MD [address] [place] [address] PCP - General Internal Medicine 10/14/21 documented as of this encounter
--- OUTSIDE RECORDS SUMMARY | 2025-02-04 16:51 | XMS_ITS | Encounter Summary ---
Author Organization [facility] Address [address] [place] [address] Care Team Providers Care Chief Analytics Officer Name Role Phone Tito Bojorquez MD Primary Care Provider Unavail able Noman Go MD Primary Care Provider [phone] Encounter Details Date Type Department Care Team Description 02/18/2020 PNO Controlled Substance Contract Medical Records [address] [place] [address] Abstract, Provider Social History Tobacco Use Types [...] have Coronavirus / COVID-19? No / Unsure 02/18/2020 9:17 AM EDT documented as of this encounter Plan of Treatment Not on file documented as of this encounter Visit Diagnoses Not on filedocumented in this encounter Additional Health Concerns Infection Onset Date Last Indicated Resolved Time COVID-19 03/17/2021 03/17/2021 05/27/2021 1:21 PM EST documented as of this encounter Care Teams Chief Analytics Officer Relationship Specialty Start Date End Date Tito Bojorquez MD PCP - General Internal Medicine 08/27/15 10/13/21 Noman Go MD [address] [place] [address] PCP - General Internal Medicine 10/14/21 documented as of this encounter
== END 2025-02-04 13:31 | disposition home or self-care (01) ==
LOC: HO.PMC 13:12
PROVIDERS: PCP Internal Medicine; Visit Provider Anesthesiology
DX: M96.1 Postlaminectomy syndrome, not elsewhere classified (principal); M54.2 Cervicalgia; M46.1 Sacroiliitis, not elsewhere classified; M53.3 Sacrococcygeal disorders, not elsewhere classified
CPT/HCPCS: 99203

== ENCOUNTER → 2025-02-04 13:11 | Outpatient (BNVA) | payer OTHER, SELFPAY | PROVIDERS: PCP Internal Medicine; Visit Provider Anesthesiology | DX: M96.1 Postlaminectomy syndrome, not elsewhere classified (principal); M54.2 Cervicalgia; M46.1 Sacroiliitis, not elsewhere classified; M53.3 Sacrococcygeal disorders, not elsewhere classified | CPT/HCPCS: 99202 ==

== ENCOUNTER 2025-03-06 08:58 | Outpatient (REF) | payer OTHER, SELFPAY ==
--- OUTSIDE RECORDS SUMMARY | 2025-03-06 11:35 | XMS_ITS | Data Portability ---
Author Organization [place] - [facility], Allergy Address [address] [place] [phone] Care Team Providers Care Candy Mixer Name Role Phone LORI DENISEA Primary Care Provider Assessment Encounter Date Assessment [...] and smoking [email or web address] Not available 10/29/2024 10:51:06 12/23/2024 12/23/2024 Patient appears to have a 1 to 2 mm hypertrophy of a minor salivary gland or papilloma in the left tip of tongue. Unfortunately [...] poor dentition and smoking [email or web address] Not available 12/23/2024 16:39:50 01/09/2025 01/09/2025 49 year old female, and smoker with a history of HPV infection s/p in-office biopsy of left ventral anterior tongue on 12/23/[address] Mitchell, presents for reevaluation and review of results. 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 Excision site on the tip of the tongue is well-healed without inflammation or infection. Reassurance was provided that the lesion is benign and has a low likelihood of recurrence, though the risk is not zero. Patient may follow up as needed with the understanding that she should call the office if it recurs or she begins to develop fever, pain, erythema, edema, bleeding, or purulent drainage at the site. All questions were answered. [email or web address] Not available 01/09/2025 13:02:32 Plan of Treatment Reminders Order Date Submit Date Provider Last Modified By Organization Details Last Modified Time Details Appointments None recorded. Lab surgical pathology study - left tongue tip 2024 025 [employer] [facility] (Centralized Electronic Ordering - All Locations), Patient Can Go To The Location Of Their Choice, [id number] 08:23:08 Referral None recorded. Procedures None recorded. Surgeries None recorded. Imaging None recorded. Medication Orders None recorded. Patient TargetsNo targets recorded. Patient InstructionsNo instructions recorded. Reason for Referral None Reported. Results Created Date Observation Date Name Description Value Unit Range Abnormal Flag Note LastModifiedBy Organization Detail LastModifiedTime Result Notes None recorded. Problems Name Problem SNOMED Code Status Onset Date Resolution Date Notes Provider Name and Address Organization Details Recorded Time Lesion of tongue 079393363 Active 025 NILESH MITCHELL MD [address] [place] [address], [place], [phone], [facility] - [facility] 5 10:48:36 Cigarette smoker 47186133 Active 025 NILESH MITCHELL MD [address] [facility], [place], [address], [facility] - [facility] 5 10:51:21 Problem Notes None recorded. Procedures Surgical History Date Name Laterality Status Provider Name and Address Organization Details Recorded Time Biopsy Anterior Tongue completed NILESH MITCHELL MD [address] [place] [address], [id number], [place] - [facility] 12/23/2024 16:32:15 Imaging Results None recorded. Procedure Notes None recorded. Medical Equipment None Reported. Allergies Allergen ID Allergen Name Allergen Category Reaction Reaction Severity Criticality Documentation Date Start Date Code Code System Note Provider Name and Address Organization Details Recorded Time 393297 Substance with sulfonami de structure and antibacte rial mechanism of action (substanc e) medicatio n Not available Not available Not available 10/29/2024 [id number] SNOMED ONEL frey [place] - [facility] 5 10:37:51 Medications Name Sig Start Date Stop Date Status Note LastModified by Organization Details LastModified Time amoxicillin 500 mg capsule TAKE 1 CAPSULE BY MOUTH THREE TIMES A DAY FOR 7 DAYS 10/29 completed Not Available Not Available Not Available acetaminoph en 325 mg tablet TAKE 2 TABLETS (650 MG TOTAL) BY MOUTH EVERY 6 HOURS NEEDED FOR MILD PAIN FOR UP TO 10 DAYS active Not Available Not Available No t Available fluconazole 150 mg tablet TAKE 1 TABLET BY MOUTH 1 TIME FOR 1 DOSE. active Not Available Not Available No t Available prednisone 20 mg tablet TAKE 1 TABLET BY MOUTH TWICE A DAY FOR 7 DAYS 10/29 completed Not Available Not Available Not Available sulindac 150 mg tablet TAKE 1 TABLET BY MOUTH TWICE A DAY NEEDED FOR MILD PAIN active Not Available Not Available No t Available topiramate 25 mg tablet TAKE 2 TABLETS BY MOUTH AT BEDTIME active Not Available Not Available No t Available butalbital- acetaminoph en-caffeine 50 mg-325 mg-40 mg tablet PLEASE SEE ATTACHED FOR DETAILED DIRECTION S active Not Available Not Available No t Available amoxicillin 500 mg tablet TAKE 1 TABLET BY MOUTH 3 TIMES A DAY FOR 7 DAYS 10/29 completed Not Available Not Available Not Available baclofen 20 mg tablet TAKE 1 TABLET BY MOUTH TWICE A DAY NEEDED FOR MUSCLE SPASMS active Not Available Not Available No t Available amoxicillin 400 mg-potassiu m clavulanate 57 mg/5 mL oral suspension TAKE 11 ML BY MOUTH 2 TIMES DAILY FOR 7 DAYS. 10/29 completed Not Available Not Available Not Available magnesium oxide 400 mg (241.3 mg magnesium) tablet TAKE 1 TABLET BY MOUTH EVERYDAY AT BEDTIME active Not Available Not Available No t Available baclofen 10 mg tablet 10 MG ORALLY 2 TIMES A DAY FOR 30 DAYS active Not Available Not Available No t Available benzonatate 100 mg capsule TAKE 1 CAPSULE BY MOUTH 3 TIMES DAILY NEEDED FOR COUGH FOR UP TO 7 DAYS. 10/29 completed Not Available Not Available Not Available cephalexin 500 mg capsule TAKE 1 CAPSULE BY MOUTH 4 TIMES PER DAY FOR 7 DAYS active Not Available Not Available No t Available docusate sodium 100 mg capsule TAKE 1 CAPSULE BY MOUTH TWICE A DAY FOR 10 DAYS active Not Available Not Available No t Available magnesium citrate oral solution TAKE 30 - 60 ML BY MOUTH 2 TIMES A DAY NEEDED FOR CONSTIPAT ION FOR 7 DAYS active Not Available Not Available No t Available folic acid 1 mg tablet TAKE 1 TABLET BY MOUTH EVERY DAY active Not Available Not Available No t Available ibuprofen 600 mg tablet TAKE 1 TABLET BY MOUTH EVERY 6 HOURS IF NEEDED FOR MILD PAIN FOR UP TO 10 DAYS. active Not Available Not Available No t Available celecoxib 100 mg capsule 100 MG ORALLY EVERY 12 HOURS FOR 30 DAYS active Not Available Not Available No t Available loratadine 10 mg tablet TAKE 1 TABLET BY MOUTH 1 TIME EACH DAY. active Not Available Not Available No t Available Ventolin HFA 90 mcg/actuati on aerosol inhaler INHALE 2 PUFFS INTO THE LUNGS EVERY 4 HOURS NEEDED FOR COUGH OR WHEEZING. active Not Available Not Available No t Available zolmitripta n 5 mg nasal spray PLEASE SEE ATTACHED FOR DETAILED DIRECTION S active Not Available Not Available No t Available pregabalin 25 mg capsule TAKE 1 CAPSULE BY MOUTH THREE TIMES A DAY active Not Available Not Available No t Available cholecalcif [place] (vitamin D3) 1,250 mcg (50,000 unit) capsule TAKE 1 CAPSULE BY MOUTH ONCE A WEEK FOR 12 WEEKS active Not Available Not Available No t Available Emgality Pen 120 mg/mL subcutaneou s pen injector PLEASE SEE ATTACHED FOR DETAILED DIRECTION S active Not Available Not Available No t Available Vitals Date Recorded Body height Body mass index (BMI) Body weight Provider Name and Address Organization Details Last Updated DateTime 10/29/2024 175.26 cm 25.1 kg/m2 46998.7 g ONEL RAMIREZ [place] - [facility] 10/29/2024 10:37:44 Date Recorded Body height Provider Name an d Address Organization Details Last Updated DateTime 12/23/2024 175.26 cm ONEL RAMIREZ [place] [facility] [place] 12/23/2024 16:06:36 Social History None recorded. Functional Status Question [...] Diagnosis SNOMED-CT Code Diagnosis ICD10 Code Diagnosis IMO Codes Diagnosis Note [id number] NILESH MITCHELL MD [facility] [address] [address] 10/29/2024 10:19:27 10/29/2024 10:51:41 Lesion of tongue 429322557 K14.8 788705 Cigarette smoker 3297136 7 F17.210 821926 [id number] NILESH MITCHELL MD [facility] [address] [address] 12/23/2024 16:00:22 12/23/2024 16:41:56 Lesion of tongue 367380318 K14.8 439664 f/u in 2-3 week with PA to review healing and the pathology. then may followup as needed thereafter Cigarette smoker 8358983 7 F17.210 [id number] [id number] RACHEL BROWN [facility] [address] [address] 01/09/2025 10:59:34 01/09/2025 11:35:23 Lesion of tongue 060605554 K14.8 203324 Excision site is well-heale d. Cigarette smoker 7916922 7 F17.210 079409 Smoking cessation encouraged , however patient is not interested at this time. History of human papilloma virus infection [id number] 76796 Z86.19 [id number] Health Concerns Section Related Observation LastModified by Organization Detai ls LastModified Time None Recorded Concern Status LastModified by Organization Details LastModified Time None Recorded Advance Directives Directive None Recorded Payers Insurance Date Sequence Insurance Name Policy Number Policy Melendrez Covered Member ID Melendrez Member ID Guarantor Name 01/09/2025 1 [facility] (MEDICAID REPLACEMENT - HMO) CAMILLA Rosas Estefania Frakn [id number] Alison Frank Notes Date Note Type Note Provider Name and Address Organization Details Recorded Time 10/29/2024 text/html ROS as noted in the HPI tongue lesiononset 1 yearuses a nail clipper to trim it off but it grows backsensitive with spicy food or acidictobacco 1ppd NILESH MITCHELL MD [address] [facility],[address], [address], [place] - [facility] [place] 10/29/2024 10:51:36 12/23/2024 text/html ROS as noted in the [facility] left tongue tip biopsy tongue lesiononset 1 yearuses a nail clipper to trim it off but it grows backsensitive with spicy food or acidictobacco 1ppd NILESH MITCHELL MD [address] [place] [address],[address], [address], [place] - [facility] [place] 12/23/2024 16:40:25 01/09/2025 text/html ROS as noted in the [facility] 49 year old female, and smoker with a history of HPV infection s/p in-office biopsy of left ventral anterior tongue on 12/23/[address] Mitchell, presents for reevaluation and review of results. 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 Patient is doing well overall. She states her tongue has healed up nicely. Patient does endorse mild discomfort with certain foods. Denies pain, swelling, purulent drainage, and bleeding. She is not interested in quitting smoking at this time. VALENCIA RAM MD [address] [facility],[address], [address], [place] - [facility] [place] 01/09/2025 13:26:43 OBGyn Episode No OBEpisode recorded.
[2025-03-09 18:53] LABS: Thyroglobulin Antibodies <1 IU/mL (< or = 1)
[2025-03-10 19:45] LABS: Antibody to SS-A Antigen <1.0 NEG AI (<1.0 NEG); Antibody to SS-B Antigen <1.0 NEG AI (<1.0 NEG); SM/Ribonucleoprotein Ab <1.0 NEG AI (<1.0 NEG); Smith Protein <1.0 NEG AI (<1.0 NEG)
[2025-03-10 21:48] LABS: Liver Kidney Microsomal Ab <=20.0 U (<=20.0)
== END 2025-03-06 08:59 | disposition home or self-care (01) ==
LOC: HO.HKASLDS 08:58
PROVIDERS: PCP Internal Medicine; Visit Provider Student in an Organized Health Care Education/Training Program
DX: M54.2 Cervicalgia (principal); M25.50 Pain in unspecified joint; R76.89 Other specified abnormal immunological findings in serum; M32.9 Systemic lupus erythematosus, unspecified; I10 Essential (primary) hypertension; F17.210 Nicotine dependence, cigarettes, uncomplicated
CPT/HCPCS: 36415; 86015; 86235; 86376; 86381; 86800; 99202

== ENCOUNTER 2025-03-06 08:58 | Outpatient (AMB) | payer OTHER, SELFPAY ==
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
[2025-03-06 09:07] VITALS: BP 120/60; PULSE 70; O2SAT 96; BMI 24.0
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
== END 2025-03-06 09:53 | disposition home or self-care (01) ==
LOC: HO.RHES 08:59
PROVIDERS: PCP Internal Medicine; Visit Provider Student in an Organized Health Care Education/Training Program
DX: R76.89 Other specified abnormal immunological findings in serum (principal); M15.0 Primary generalized (osteo)arthritis
CPT/HCPCS: 99204